=== PATIENT | female | born 1955 | race Caucasian/White ===

== ENCOUNTER 2017-04-16 12:16 | Emergency (ER) | payer SELFPAY ==
[~2017-04-16] VITALS: Ht 149.9 cm; Wt 60.2 kg
[~2017-04-16 12:16] MED LIST: ALPR.5 PO; PROT40TA PO; TRAM-492 PO; TRAZ100T5; ZOLO100T PO
[2017-04-16 12:20] VITALS: BP 134/76; PULSE 78; RESP 16; TEMP 98.1; O2SAT 98
[2017-04-16] MEDS ORDERED: CYCLOBENZAPRINE HCL 10 MG TAB PO ONE (12:30)
[2017-04-16] MEDS ORDERED: KETOROLAC TROMETHAMINE 60 MG/2 ML (IM) VIAL IM ONE (12:30)
--- NOTE | 2017-04-16 12:44 | PD ---
HPI Chief Complaint: Musculoskeletal Complaint Time Seen by Provider: 12:31 Travel History International Travel<30 days: No Contact w/Intl Traveler<30days: No Traveled to known affect area: No History of Present Illness HPI 62-year-old female presents to the emergency room for evaluation of bilateral low back pain with radiation down the left lower extremity for the past week. Patient denies trauma or injury. States it started after she [place] the [place]. Pain has worsened. She has been taking Aleve without significant relief in symptoms. Pain is worsened with ambulation and when she applies pressure to the left lower extremity. She denies fever, chills, weight loss, IV drug use, upper or lower extremity paresthesias, loss of bowel or bladder control, and saddle anesthesia. She had one episode of sciatica about 4 years ago but has no other back pain history. No significant past medical history. PFSH Past Medical History Arthritis: Yes (OSTEOARTHRITIS) Asthma: No Autoimmune Disease: No Blood Disorders: No Anxiety: Yes Depression: Yes Heart Rhythm Problems: No Cancer: No Cardiovascular Problems: No High Cholesterol: Yes Chest Pain: No Congestive Heart Failure: No COPD: No Cerebrovascular Accident: No Diabetes: No Diminished Hearing: No Endocrine: No Gastrointestinal Disorders: Yes (gastritis, pancreatitis) GERD: No Genitourinary: No Headaches: No Hepatitis: No Hiatal Hernia: No Hypertension: No Immune Disorder: No Kidney Stones: No Musculoskeletal: Yes (CHRONIC BACK PAIN) Neurologic: No Psychiatric: No Reproductive: No Respiratory: No Migraines: No Myocardial Infarction: No Pancreatitis: Yes Renal Failure: No Seizures: No Sickle Cell Disease: No Sleep Apnea: No Thyroid Disease: No Triglycerides - High: Yes Ulcer: Yes ?: Not Menopausal: Yes Past Surgical History Abdominal Surgery: No AICD: No Appendectomy: No Arteriovenous Shunt: No Cardiac Surgery: No Section: Yes (x2) Cholecystectomy: No Ear Surgery: No Endocrine Surgery: No Eye Surgery: No Genitourinary Surgery: No Gynecologic Surgery: Yes (C SECTIONS) Insulin Pump: No Oral Surgery: No Pacemaker: No Thoracic Surgery: No Other Surgery: Yes (C SECTIONS) Social History Alcohol Use: No (stopped 3 weeks ago ) Tobacco Use: Yes (3 CIGS A DAY) Substance Use: No Allergies-Medications (Allergen,Severity, Reaction): Coded Allergies: Penicillin (Verified Allergy, Severe, Rash/Itching, 04/16/17) Reported Meds & Prescriptions Reported Meds & Active Scripts Active Robaxin (Methocarbamol) 750 Mg Tab 750 Mg PO Q8HR Zoloft (Sertraline HCl) 100 Mg Tab 100 Mg PO DAILY Reported Trazodone HCl 100 Mg Tab 300 Mg HS Review of Systems Except as stated in HPI: all other systems reviewed are Neg Physical Exam Narrative GENERAL: Well-nourished, well-developed female in no acute distress. Afebrile. Ambulatory. SKIN: Focused skin assessment warm/dry. No erythema or ecchymosis. HEAD: Normocephalic. EYES: No scleral icterus. No injection or drainage. NECK: Supple, trachea midline. No JVD or lymphadenopathy. CARDIOVASCULAR: Regular rate and rhythm without murmurs, gallops, or rubs. RESPIRATORY: Breath sounds equal bilaterally. No accessory muscle use. BACK: No CVA tenderness. No rash. No point tenderness on palpation of the spine. Moderate tenderness to palpation of the left buttocks. Negative straight leg raise. Strength 5/5 and equal in lower extremities. Data Data Last Documented VS Vital Signs Date Time Temp Pulse Resp B/P Pulse Ox O2 Delivery O2 Flow Rate FiO2 04/16/17 12:20 98.1 78 16 134/76 98 Orders Spine, Lumbar - Ltd (Ap & Lat) (04/16/17 ) Cyclobenzaprine (Flexeril) (04/16/17 12:30) Ketorolac Inj (Toradol Inj) (04/16/17 12:30) MDM Medical Decision Making Medical Screen Exam Complete: Yes Emergency Medical Condition: Yes Medical Record Reviewed: Yes Differential Diagnosis Acute on chronic low back pain, Sciatica, muscle spasm Narrative Course 62-year-old female presents to the emergency room for evaluation of low back pain with radiation down the left lower extremity for the past week. Patient denies trauma or injury. She is ambulatory. No red flag symptoms. Left lower extremity is neurovascularly intact. X-ray shows degenerative spondylosis. This is sciatica. Patient will be given Flexeril and Toradol in the emergency room. Discharged with prescriptions for ibuprofen and Robaxin. Told to follow up with a primary care physician or return for worsening symptoms. She understands and agrees to plan. Diagnosis Primary Impression: Left-sided low back pain with sciatica Qualified Code: M54.42 - Acute left-sided low back pain with left-sided sciatica Referrals: Primary Care Physician Patient Instructions: General Instructions, Sciatica (ED) Additional Instructions: Rest and drink plenty of fluids. Take Robaxin as directed, as needed for pain. Take ibuprofen with food as directed, as needed for pain. Apply ice to the affected area for 20 minutes at a time, as needed for pain and swelling. Follow-up with a primary care physician. Return to the emergency room for worsening symptoms. Med/Other Pt SpecificInfo: Prescription(s) given Scripts Methocarbamol (Robaxin)750 Mg [id number] Mg PO Q8HR #15 TAB Ref 0 Prov:Toby Boston MD 04/16/17 Disposition: 01 DISCHARGE HOME Condition: Stable Elvira Aguero Apr 16, 2017 12:43
[2017-04-16] MEDS ORDERED: ROBA750T PO (13:16)
--- NOTE | 2017-04-16 14:09 | RADHPO ---
EXAM DATE/TIME: 04/16/2017 12:51 [facility] COMPARISON: No previous studies available for comparison. INDICATIONS : Lower back pain for 1 week. No known injury. MEDICAL HISTORY : None. SURGICAL HISTORY : None. ENCOUNTER: Initial ACUITY: 1 week PAIN SCORE: 8/10 LOCATION: Lumbar spine FINDINGS: Two view examination was performed. There are five non-rib bearing vertebral bodies. The vertebral bodies are in normal alignment without evidence of subluxation or scoliosis. Mild joint space narrowi ng and in the lower lumbar spine with minimal lateral osteophytes. The pedicles are intact. Bony mi neralization is normal. No fracture is identified. Mild aortic calcifications. CONCLUSION: 1. Mild degenerative spondylosis of the lower lumbar spine. Azar Hull MD on April 16, 2017 at 13:57 Board Certified Radiologist. This report was verified electronically.
[2017-04-17] MEDS ORDERED: TRAZ1TAB45 PO (13:47)
[2017-04-19] MEDS ORDERED: TRAZ1TAB45 PO (13:28)
== END 2017-04-16 14:36 | disposition home or self-care (01) ==
LOC: PHEFT 12:16
DX: M54.42 Lumbago with sciatica, left side (principal); E78.00 Pure hypercholesterolemia, unspecified; F17.210 Nicotine dependence, cigarettes, uncomplicated
CPT/HCPCS: 72100; 96372; 99284; J1885

== ENCOUNTER 2017-08-31 07:39 | Emergency (ER) | payer SELFPAY ==
[~2017-08-31] VITALS: Ht 149.9 cm; Wt 50.5 kg
[~2017-08-31 07:39] MED LIST changes: -ALPR.5 PO; -PROT40TA PO; +ROBA750T PO; -TRAM-492 PO; +TRAM50TA PO; -TRAZ100T5; +TRAZ1TAB45 PO
[2017-08-31 07:43] VITALS: BP 140/65; PULSE 92; RESP 16; TEMP 98.2; O2SAT 95
--- NOTE | 2017-08-31 08:13 | PD ---
HPI Chief Complaint: Fall Time Seen by Provider: 08:03 Travel History International Travel<30 days: No Contact w/Intl Traveler<30days: No Traveled to known affect area: No History of Present Illness HPI 62-year-old female states she tripped and fell on the ground last night and hit the left side of her head and left lower ribs. She did not lose consciousness. She is not on any blood thinner medications. She denies any other concurrent complaints. Quality pain is sharp. Severity is severe per patient. Pain is worse with movement. Fall was from standing. PFSH Past Medical History Arthritis: Yes (OA) Asthma: No Autoimmune Disease: No Blood Disorders: No Anxiety: Yes Depression: Yes Heart Rhythm Problems: No Cancer: No Cardiovascular Problems: No High Cholesterol: Yes Chest Pain: No Congestive Heart Failure: No COPD: No Cerebrovascular Accident: No Diabetes: No Diminished Hearing: No Endocrine: No Gastrointestinal Disorders: Yes (Gastritis, pancreatitis) GERD: No Genitourinary: No Headaches: No Hepatitis: No Hiatal Hernia: No Hypertension: No Immune Disorder: No Kidney Stones: No Musculoskeletal: Yes (Chronic back pain, sciatica ) Neurologic: No Psychiatric: No Reproductive: No Respiratory: No Migraines: No Myocardial Infarction: No Pancreatitis: Yes Renal Failure: No Seizures: No Sickle Cell Disease: No Sleep Apnea: No Thyroid Disease: No Triglycerides - High: Yes Ulcer: Yes ?: Not Menopausal: Yes Past Surgical History Abdominal Surgery: No AICD: No Appendectomy: No Arteriovenous Shunt: No Cardiac Surgery: No Section: Yes (X's 2) Cholecystectomy: No Ear Surgery: No Endocrine Surgery: No Eye Surgery: No Genitourinary Surgery: No Gynecologic Surgery: Yes (C SECTIONS) Insulin Pump: No Oral Surgery: No Pacemaker: No Thoracic Surgery: No Other Surgery: Yes (C SECTIONS) Social History Alcohol Use: No (Occ.) Tobacco Use: Yes (1-2 cigarettes/day) Substance Use: No Allergies-Medications (Allergen,Severity, Reaction): Coded Allergies: penicillin G (Unverified Allergy, Severe, Rash/Itching, 08/31/17) Reported Meds & Prescriptions Reported Meds & Active Scripts Active Percocet (Oxycodone-Acetaminophen) 5-325 mg Tab 1 Tab PO Q6H PRN Tramadol (Tramadol HCl) 50 Mg Tab 50 Mg PO TID PRN Trazodone (Trazodone HCl) 150 Mg Tablet 2 Tab PO HS Zoloft (Sertraline HCl) 100 Mg Tab 100 Mg PO DAILY Review of Systems Except as stated in HPI: all other systems reviewed are Neg Physical Exam Narrative General: 62 y/o patient who appears uncomfortable when she takes a deep breath on her left lower rib area Skin: trauma noted to left forehead with small hematoma and abrasion Eyes: Pupils equal, eomi ENT: no septal hematoma NECK: no pain with palpation and range of motion, nexus criteria negative Cardiovascular: Regular rate and rhythm Respiratory: Normal respiratory effort noted, clear to auscultation bilaterally Abdomen: soft, nontender, nondistended Back: No step-offs, midline spine nontender with palpation Extremities: No pain over main joints Neuro: awake, alert, sensation and motor grossly intact Chest wall: Tender to left lower lateral rib area under left breast Data Data Last Documented VS Vital Signs Date Time Temp Pulse Resp B/P (MAP) Pulse Ox O2 Delivery O2 Flow Rate FiO2 08/31/17 07:43 98.2 92 16 140/65 (90) 95 Room Air Orders Orders Ct Brain W/O Iv Contrast(Rout) (08/31/17 08:03) Chest, Pa & Lat (08/31/17 ) Ketorolac Inj (Toradol Inj) (08/31/17 08:15) Ed Discharge Order (08/31/17 08:59) [facility] Medical Decision Making Medical Screen Exam Complete: Yes Emergency Medical Condition: Yes Medical Record Reviewed: Yes (past history confirmed) Interpretation(s) Last 24 hours Impressions Chest X-Ray 08/31/17 0000 Signed Impressions: Service Date/Time: Thursday, August 31, 2017 08:14 - CONCLUSION: Normal examination. Carlos Coyne MD ct brain no acute Differential Diagnosis Fracture, pneumothorax, intracranial hemorrhage, musculoskeletal strain Narrative Course Will check chest x-ray and CT head. Patient drove herself here will dose with Toradol and reevaluate as patient's states Tylenol is not strong enough ed workup no acute findings on imaging, Patient denies any new complaints and states that they are feeling better. Patient happy with care, all questions answered. Patient knows that follow up is incumbent on them and to return to the emergency room immediately if new or worsening symptoms develop. Patient given strict return precautions, vitals reviewed and are normal, agrees to further workup as an outpatient. Diagnosis Primary Impression: Rib pain on left side Additional Impression: Traumatic hematoma of forehead Qualified Codes: S00.83XA - Contusion of other part of head, initial encounter Patient Instructions: General Instructions Additional Instructions: return as needed, percocet as needed for severe pain, follow with primary this week Med/Other Pt SpecificInfo: Prescription(s) given Scripts Oxycodone-Acetaminophen (Percocet) 5-325 mg Tab 1 TAB PO Q6H Y for PAIN, #10 TAB 0 Refills Prov: Shanti Hernández MD 08/31/17 Disposition: 01 DISCHARGE HOME Condition: Stable Shanti Hernández MD Aug 31, 2017 08:12
[2017-08-31] MEDS ORDERED: KETOROLAC TROMETHAMINE 60 MG/2 ML (IM) VIAL IM ONE (08:15)
--- NOTE | 2017-08-31 08:37 | RADRPT ---
EXAM DATE/TIME: 08/31/2017 08:14 [facility] COMPARISON: No previous studies available for comparison. INDICATIONS : Left sided chest pain post fall yesterday MEDICAL HISTORY : None. SURGICAL HISTORY : None. ENCOUNTER: Initial ACUITY: 1 day PAIN SCORE: 10/10 LOCATION: Left chest FINDINGS: PA and lateral views of the chest demonstrate the lungs to be symmetrically aerated without evidence of mass, infiltrate or effusion. The cardiomediastinal contours are unremarkable. Osseous structure s are intact. CONCLUSION: Normal examination. Carlos Coyne MD on August 31, 2017 at 8:34 Board Certified Radiologist. This report was verified electronically.
--- NOTE | 2017-08-31 08:45 | RADRPT ---
EXAM DATE/TIME: 08/31/2017 08:29 [facility] COMPARISON: No previous studies available for comparison. INDICATIONS : Fall hitting head. RADIATION DOSE: 60.14 CTDIvol (mGy) MEDICAL HISTORY : Hypercholesterolemia. Pancreatitis. Hyperlipedema, Sciatica SURGICAL HISTORY : Knee ENCOUNTER: Initial ACUITY: 1 day PAIN SCALE: 8/10 LOCATION: Left cranial near forehead. TECHNIQUE: Multiple contiguous axial images were obtained of the head. Using automated exposure control and adj ustment of the mA and/or kV according to patient size, radiation dose was kept as low as reasonably a chievable to obtain optimal diagnostic quality images. DICOM format image data is available electro nically for review and comparison. FINDINGS: CEREBRUM: The ventricles are normal for age. No evidence of midline shift, mass lesion, hemorrhage or acute in farction. No extra-axial fluid collections are seen. POSTERIOR FOSSA: The cerebellum and brainstem are intact. The 4th ventricle is midline. The cerebellopontine angle i s unremarkable. EXTRACRANIAL: The visualized portion of the orbits is intact. There is a small focal increased density seen in the left lateral frontal scalp likely from focal injury or pre-existing skin lesion. SKULL: The calvaria is intact. No evidence of skull fracture. CONCLUSION: No intracranial abnormality seen. Carlos Coyne MD on August 31, 2017 at 8:41 Board Certified Radiologist. This report was verified electronically.
[2017-08-31] MEDS ORDERED: PERC5TAB12 PO (08:52)
[2017-09-12] MEDS ORDERED: TRAZ1TAB45 PO (15:36)
[2017-09-12] MEDS ORDERED: TRAM50TA PO (15:38)
== END 2017-08-31 09:11 | disposition home or self-care (01) ==
LOC: PHED 07:39
DX: R07.81 Pleurodynia (principal); S00.83XA Contusion of other part of head, initial encounter; E78.5 Hyperlipidemia, unspecified; Z72.0 Tobacco use; Z87.39 Personal history of other diseases of the musculoskeletal system and connective tissue; Z86.59 Personal history of other mental and behavioral disorders; Z87.19 Personal history of other diseases of the digestive system; W01.0XXA Fall on same level from slipping, tripping and stumbling without subsequent striking against object, initial encounter
CPT/HCPCS: 70450; 71020; 96372; 99285; J1885

== ENCOUNTER 2017-09-04 12:16 | Emergency (ER) | payer SELFPAY ==
[~2017-09-04] VITALS: Ht 149.9 cm; Wt 51.0 kg
[~2017-09-04 12:16] MED LIST changes: +PERC5TAB12 PO; -ROBA750T PO
[2017-09-04 12:21] VITALS: BP 137/69; PULSE 73; RESP 18; TEMP 99.2; O2SAT 97
--- NOTE | 2017-09-04 13:36 | PD ---
HPI Chief Complaint: Respiratory Symptoms Time Seen by Provider: 13:26 Travel History International Travel<30 days: No Contact w/Intl Traveler<30days: No Traveled to known affect area: No History of Present Illness HPI 62-year-old female complains of left-sided chest wall pain. Patient fell 4 days ago and was seen in emergency room. Patient had CT scan the brain and chest x-ray done which shows no acute pathology. Patient was diagnosed with possible refracture and given prescription for Percocet. Patient states that she has persistent left sided chest wall pain. The pain is sharp pain localized to left chest. Patient denies any pain radiation. Patient states that the pain is worse with deep breathing and movement. PFSH Past Medical History Arthritis: Yes (OA) Asthma: No Autoimmune Disease: No Blood Disorders: No Anxiety: Yes Depression: Yes Heart Rhythm Problems: No Cancer: No Cardiovascular Problems: No High Cholesterol: Yes Chest Pain: No Congestive Heart Failure: No COPD: No Cerebrovascular Accident: No Diabetes: No Diminished Hearing: No Endocrine: No Gastrointestinal Disorders: Yes (Gastritis, pancreatitis) GERD: No Genitourinary: No Headaches: No Hepatitis: No Hiatal Hernia: No Heparin Induced Thrombocytopen: No Hypertension: No Immune Disorder: No Implanted Vascular Access Dvce: No Kidney Stones: No Musculoskeletal: Yes (Chronic back pain, sciatica ) Neurologic: No Psychiatric: No Reproductive: No Respiratory: No Migraines: No Myocardial Infarction: No Pancreatitis: Yes Renal Failure: No Seizures: No Sickle Cell Disease: No Sleep Apnea: No Thyroid Disease: No Triglycerides - High: Yes Ulcer: Yes ?: Not Menopausal: Yes Past Surgical History Abdominal Surgery: No AICD: No Appendectomy: No Arteriovenous Shunt: No Cardiac Surgery: No Section: Yes (X's 2) Cholecystectomy: No Ear Surgery: No Endocrine Surgery: No Eye Surgery: No Genitourinary Surgery: No Gynecologic Surgery: Yes (C SECTIONS) Insulin Pump: No Neurologic Surgery: No Oral Surgery: No Pacemaker: No Thoracic Surgery: No Other Surgery: Yes (C SECTIONS) Social History Alcohol Use: No (Occ.) Tobacco Use: Yes (1-2 cigarettes/day) Substance Use: No Allergies-Medications (Allergen,Severity, Reaction): Coded Allergies: penicillin G (Unverified Allergy, Severe, Rash/Itching, 09/04/17) Reported Meds & Prescriptions Reported Meds & Active Scripts Active Percocet (Oxycodone-Acetaminophen) 5-325 mg Tab 1 Tab PO Q6H PRN Tramadol (Tramadol HCl) 50 Mg Tab 50 Mg PO TID PRN Trazodone (Trazodone HCl) 150 Mg Tablet 2 Tab PO HS Zoloft (Sertraline HCl) 100 Mg Tab 100 Mg PO DAILY Review of Systems General / Constitutional: No: Fever Eyes: No: Visual changes HENT: No: Headaches Cardiovascular: No: Chest Pain or Discomfort Respiratory: No: Shortness of Breath Gastrointestinal: No: Abdominal Pain Genitourinary: No: Dysuria Musculoskeletal: Positive: Pain Skin: No Rash Neurologic: No: Weakness Psychiatric: No: Depression Endocrine: No: Polydipsia Hematologic/Lymphatic: No: Easy Bruising Physical Exam Narrative GENERAL: Well-nourished, well-developed patient. SKIN: Focused skin assessment warm/dry. HEAD: Normocephalic. EYES: No scleral icterus. No injection or drainage. NECK: Supple, trachea midline. No JVD or lymphadenopathy. CARDIOVASCULAR: Regular rate and rhythm without murmurs, gallops, or rubs. RESPIRATORY: Breath sounds equal bilaterally. No accessory muscle use. GASTROINTESTINAL: Abdomen soft, non-tender, nondistended. MUSCULOSKELETAL: No cyanosis, or edema. BACK: Nontender without obvious deformity. No CVA tenderness. Moderate tenderness on palpation left chest wall but axillary line. No crepitus or deformity noted. Breath sounds equal bilaterally. Data Data Last Documented VS Vital Signs Date Time Temp Pulse Resp B/P (MAP) Pulse Ox O2 Delivery O2 Flow Rate FiO2 09/04/17 12:21 99.2 73 18 137/69 (91) 97 Orders Orders Ribs, Uni (W/Exp Cxr-Min 3vw) (09/04/17 13:32) [facility] Medical Decision Making Medical Screen Exam Complete: Yes Emergency Medical Condition: Yes Interpretation(s) X-ray left RIBS shows no acute process. Differential Diagnosis Differential diagnosis including contusion, rib fracture, hemopneumothorax. Narrative Course 62-year-old female with persistent left-sided chest wall pain. Status post fall. Diagnosis Primary Impression: Chest wall contusion Qualified Codes: S20.212D - Contusion of left front wall of thorax, subsequent encounter Patient Instructions: General Instructions Additional Instructions: Take medication as needed for pain. Follow-up with personal physician. Return if worse. Med/Other Pt SpecificInfo: Prescription(s) given Scripts Methocarbamol (Robaxin) 750 Mg Tab 750 MG PO QID for Muscle Spasm, #20 TAB 0 Refills Prov: Aureliano Arellano MD 09/04/17 Meloxicam (Mobic) 15 Mg Tab 15 MG PO DAILY for Pain, #30 TAB 0 Refills Prov: Aureliano Arellano MD 09/04/17 Disposition: 01 DISCHARGE HOME Condition: Stable Aureliano Arellano MD Sep 04, 2017 13:35
--- NOTE | 2017-09-04 14:46 | RADRPT ---
EXAM DATE/TIME: 09/04/2017 13:44 [facility] COMPARISON: No previous studies available for comparison. INDICATIONS : Worsening left chest pain post fall 4 days ago. Painful respiratons. Re-check. MEDICAL HISTORY : Hypercholesterolemia. Pancreatitis. Osteoarthritis. Gastritis. Ulcer. Sciatica. Smoker. SURGICAL HISTORY : section. Mastectomy. Right knee. Colectomy. ENCOUNTER: [facility] ACUITY: 4 - 6 days PAIN SCORE: 9/10 LOCATION: Left chest /ribs FINDINGS: Multiple views of the left ribs were performed. There is no evidence of displaced fracture. No dest ructive lesions or areas of periosteal thickening are seen. Expiratory view of the chest is negative for pneumothorax. The mediastinal structures are midline. CONCLUSION: The lungs are clear. Kale Kaplan MD on September 04, 2017 at 14:44 Board Certified Radiologist. This report was verified electronically.
[2017-09-04] MEDS ORDERED: ROBA750T PO (14:53)
[2017-09-04] MEDS ORDERED: MOBI15TA PO (14:53)
[2017-09-12] MEDS ORDERED: TRAZ1TAB45 PO (15:36)
[2017-09-12] MEDS ORDERED: TRAM50TA PO (15:38)
[2017-09-16] MEDS ORDERED: CALCTAB19 PO (09:01)
[2017-09-16] MEDS ORDERED: HYDR-3583 PO (09:01)
[2017-09-16] MEDS ORDERED: ERGO1CAP30 PO (09:01)
[2017-09-17] MEDS ORDERED: SENN1TAB PO (11:52)
== END 2017-09-04 15:33 | disposition home or self-care (01) ==
LOC: PHED 12:16
DX: S20.212D Contusion of left front wall of thorax, subsequent encounter (principal); Z72.0 Tobacco use; X58.XXXD Exposure to other specified factors, subsequent encounter
CPT/HCPCS: 71101; 99284

== ENCOUNTER 2017-09-14 06:50 | Inpatient (IN) | payer SELFPAY ==
[2017-09-14] VITALS (11 sets, daily range): BP systolic 86–148; BP diastolic 46–71; PULSE 67–82; RESP 18–22; TEMP 97–98.2; O2SAT 92–97
[~2017-09-14] VITALS: Ht 149.9 cm; Wt 55.3 kg
[~2017-09-14 06:50] MED LIST changes: +MOBI15TA PO; +ROBA750T PO
[2017-09-14] MEDS ORDERED: KETOROLAC TROMETHAMINE 30 MG/ML (IVP) VIAL IV PUSH ONE ×2 (07:00)
--- NOTE | 2017-09-14 07:09 | PD ---
HPI Chief Complaint: Fall Time Seen by Provider: 06:58 Travel History International Travel<30 days: No Contact w/Intl Traveler<30days: No History of Present Illness HPI 62 yo f c/o L arm pain. she slipped on the wet ground 9 hours prior leading to injury. constant moderate to severe pain reported. it's worse with passive/ active rom. no additional injury to report. onset sudden. mechanical fall. PFSH Past Medical History Arthritis: Yes (OA) Asthma: No Autoimmune Disease: No Blood Disorders: No Anxiety: Yes Depression: Yes Heart Rhythm Problems: No Cancer: No Cardiovascular Problems: No High Cholesterol: Yes Chest Pain: No Congestive Heart Failure: No COPD: No Cerebrovascular Accident: No Diabetes: No Diminished Hearing: No Endocrine: No Gastrointestinal Disorders: Yes (Gastritis, pancreatitis) GERD: No Genitourinary: No Headaches: No Hepatitis: No Hiatal Hernia: No Heparin Induced Thrombocytopen: No Hypertension: No Immune Disorder: No Implanted Vascular Access Dvce: No Kidney Stones: No Musculoskeletal: Yes (Chronic back pain, sciatica ) Neurologic: No Psychiatric: No Reproductive: No Respiratory: No Migraines: No Myocardial Infarction: No Pancreatitis: Yes Renal Failure: No Seizures: No Sickle Cell Disease: No Sleep Apnea: No Thyroid Disease: No Triglycerides - High: Yes Ulcer: Yes Menopausal: Yes Past Surgical History Abdominal Surgery: No AICD: No Appendectomy: No Arteriovenous Shunt: No Cardiac Surgery: No Section: Yes (X's 2) Cholecystectomy: No Ear Surgery: No Endocrine Surgery: No Eye Surgery: No Genitourinary Surgery: No Gynecologic Surgery: Yes (C SECTIONS) Insulin Pump: No Neurologic Surgery: No Oral Surgery: No Pacemaker: No Thoracic Surgery: No Other Surgery: Yes (C SECTIONS) Social History Alcohol Use: No (Occ.) Tobacco Use: Yes (1-2 cigarettes/day) Substance Use: No Allergies-Medications (Allergen,Severity, Reaction): Coded Allergies: penicillin G (Unverified Allergy, Severe, Rash/Itching, 09/04/17) Reported Meds & Prescriptions Reported Meds & Active Scripts Active Trazodone (Trazodone HCl) 150 Mg Tablet 2 Tab PO HS Zoloft (Sertraline HCl) 100 Mg Tab 100 Mg PO DAILY Review of Systems General / Constitutional: No: Fever, Chills Neurologic: No: Weakness, Syncope Physical Exam Narrative GENERAL: 62 yo F, WNWD, moderate distress 2/2 pain SKIN: Warm and dry. HEAD: Atraumatic. Normocephalic. EYES: Pupils equal and round. No scleral icterus. No injection or drainage. ENT: No nasal bleeding or discharge. Mucous membranes pink and moist. NECK: Trachea midline. No JVD. CARDIOVASCULAR: Regular rate and rhythm. RESPIRATORY: No accessory muscle use. Clear to auscultation. Breath sounds equal bilaterally. GASTROINTESTINAL: Abdomen soft, non-tender, nondistended. Hepatic and splenic margins not palpable. MUSCULOSKELETAL: TTP throughout LUE. 2+ radial artery pulse. ROM of fingers intact bilaterally. no gross deformity. NEUROLOGICAL: Awake and alert. No obvious cranial nerve deficits. Motor grossly within normal limits. Five out of 5 muscle strength in the arms and legs. Normal speech. PSYCHIATRIC: Appropriate mood and affect; insight and judgment normal. Data Data Last Documented VS Vital Signs Date Time Temp Pulse Resp B/P (MAP) Pulse Ox O2 Delivery O2 Flow Rate FiO2 09/14/17 10:29 72 20 128/68 (88) 97 Room Air 09/14/17 08:35 2.00 09/14/17 07:00 98.2 Orders Orders Ketorolac Inj (Toradol Inj) (09/14/17 07:00) Humerus (Min 2vws) (09/14/17 06:58) Ice/Cold Pack (09/14/17 06:58) Splint Or Brace Apply/Monitor (09/14/17 06:58) Shoulder, Limited(2vws) (09/14/17 06:58) Basic Metabolic Panel (Bmp) (09/14/17 07:40) Complete Blood Count With Diff (09/14/17 07:40) Prothrombin Time / Inr (Pt) (09/14/17 07:40) Act Partial Throm Time (Ptt) (09/14/17 07:40) Iv Access Insert/Monitor (09/14/17 07:40) Ecg Monitoring (09/14/17 07:40) Oximetry (09/14/17 07:40) Hydromorphone Pf Inj (Dilaudid Pf Inj) (09/14/17 07:45) Ondansetron Inj (Zofran Inj) (09/14/17 07:45) Sodium Chlor 0.9% 1000 Ml Inj (Ns 1000 M (09/14/17 07:40) Sodium Chloride 0.9% Flush (Ns Flush) (09/14/17 07:45) Propofol 200 Mg/20 Ml Inj (Diprivan 200 (09/14/17 07:45) Sling Cradle Arm (09/14/17 ) Shoulder, Limited(2vws) (09/14/17 ) Humerus (Min 2vws) (09/14/17 ) Chest, Single Ap (09/14/17 08:50) Alcohol (Ethanol) (09/14/17 09:15) Sodium Chlor 0.9% 1000 Ml Inj (Ns 1000 M (09/14/17 09:30) Ct Shoulder W/O Contrast (09/14/17 ) Admit Order (Ed Use Only) (09/14/17 ) Vital Signs (Adult) Q4H (09/14/17 10:31) Diet Npo (09/14/17 Lunch) Activity Bed Rest (09/14/17 10:31) Notify Dr: Other (09/14/17 10:31) Labs Laboratory Tests Test 09/14/17 08:00 White Blood Count 7.3 TH/MM3 Red Blood Count 4.07 MIL/MM3 Hemoglobin 14.3 GM/DL Hematocrit 41.5 % Mean Corpuscular Volume 102.0 FL Mean Corpuscular Hemoglobin 35.2 PG Mean Corpuscular Hemoglobin Concent 34.5 % Red Cell Distribution Width 12.6 % Platelet Count 261 TH/MM3 Mean Platelet Volume 7.7 FL Neutrophils (%) (Auto) 74.1 % Lymphocytes (%) (Auto) 22.1 % Monocytes (%) (Auto) 2.9 % Eosinophils (%) (Auto) 0.2 % Basophils (%) (Auto) 0.7 % Neutrophils # (Auto) 5.3 TH/MM3 Lymphocytes # (Auto) 1.6 TH/MM3 Monocytes # (Auto) 0.2 TH/MM3 Eosinophils # (Auto) 0.0 TH/MM3 Basophils # (Auto) 0.1 TH/MM3 CBC Comment DIFF FINAL Differential Comment Prothrombin Time 11.7 SEC Prothromb Time International Ratio 1.1 RATIO Activated Partial Thromboplast Time 23.2 SEC Blood Urea Nitrogen 5 MG/DL Creatinine 0.49 MG/DL Random Glucose 117 MG/DL Calcium Level 8.1 MG/DL Sodium Level 143 MEQ/L Potassium Level 3.0 MEQ/L Chloride Level 106 MEQ/L Carbon Dioxide Level 21.5 MEQ/L Anion Gap 16 MEQ/L Estimat Glomerular Filtration Rate 127 ML/MIN Ethyl Alcohol Level 192 MG/DL MDM Medical Decision Making Medical Screen Exam Complete: Yes Emergency Medical Condition: Yes Medical Record Reviewed: Yes Differential Diagnosis fracture, contusion, sprain, opioid misuse/addiction Narrative Course Procedural sedation with attempted reduction complicated by morphology of fracture. No resultant improvement after attempt. 2+ radial artery before and after wrist extension intact before and after Pain controlled with toradol and dilaudid 0.75mg. CBC & BMP Diagram 09/14/17 08:00 Calcium Level 8.1 L EtOH 192 Last 24 hours Impressions Chest X-Ray 09/14/17 0850 Signed Impressions: Service Date/Time: Thursday, September 14, 2017 08:59 - CONCLUSION: 1. No acute cardiopulmonary disease. 2. Comminuted left humeral neck fracture. Azar Hull MD Shoulder X-Ray 09/14/17 0658 Signed Impressions: Service Date/Time: Thursday, September 14, 2017 07:13 - CONCLUSION: 1. Comminuted left humeral neck fracture, as above. Azar Hull MD Humerus X-Ray 09/14/17 0658 Signed Impressions: Service Date/Time: Thursday, September 14, 2017 07:23 - CONCLUSION: 1. Comminuted left humeral neck fracture, as above. Azar Hull MD Shoulder X-Ray 09/14/17 0000 Signed Impressions: Service Date/Time: Thursday, September 14, 2017 08:54 - CONCLUSION: 1. Comminuted humeral neck fracture, as above. Azar Hull MD Humerus X-Ray 09/14/17 0000 Signed Impressions: Service Date/Time: Thursday, September 14, 2017 08:57 - CONCLUSION: 1. Comminuted humeral neck fracture, as above. Azar Hull MD d/w Dr Dale pt to go to [facility] for ORIF ct shoulder added d/w Dr Serrano Procedures Procedure Narrative After the risks and benefits were discussed the following procedure was performed: MODERATE SEDATION: The patient was placed on a monitoring and evaluation advisor and pulse oximetry. An ambu bag and suction was immediately available at bedside. The patient was monitored by the nurse. Oxygen saturation , heart rate and blood pressure were monitored. Procedural sedation was acheived using propofol. The patient was observed until awake and alert. Procedural Sedation time in attendance was 15 minutes. DISLOCATION/FRACTURE: 2/2 morphology attempted reduction was unsuccessful. 2+ radial artery pulse bilaterally. wrist extension normal. Diagnosis Primary Impression: Fracture dislocation of left shoulder joint Qualified Codes: S42.92XA - Fracture of left shoulder girdle, part unspecified , initial encounter for closed fracture Admitting Information Admitting Physician Requests: Keith Winkler MD Sep 14, 2017 07:09
[2017-09-14] MEDS ORDERED: SODIUM CHLOR 0.9% 1000 ML INJ 1,000 ML IV SCH ×2 (07:40)
--- NOTE | 2017-09-14 07:41 | RADRPT ---
EXAM DATE/TIME: 09/14/2017 07:23 [facility] COMPARISON: SHOULDER LEFT LTD (2VWS), September 14, 2017, 7:13. INDICATIONS : Fell last night on left arm and shoulder MEDICAL HISTORY : None. SURGICAL HISTORY : None. ENCOUNTER: Initial ACUITY: 1 day PAIN SCORE: 10/10 LOCATION: Left upper arm FINDINGS: Comminuted fracture of the left humeral neck with rotation and acute angulation of the humeral head a nd medial displacement of the distal fragment. Visualized portions of the left lung are clear. The re maining osseous structures are intact. Associated regional soft tissue swelling. CONCLUSION: 1. Comminuted left humeral neck fracture, as above. Azar Hull MD on September 14, 2017 at 7:36 Board Certified Radiologist. This report was verified electronically.
--- NOTE | 2017-09-14 07:42 | RADRPT ---
EXAM DATE/TIME: 09/14/2017 07:13 [facility] COMPARISON: No previous studies available for comparison. INDICATIONS : Fell last night on shoulder and arm MEDICAL HISTORY : None. SURGICAL HISTORY : None. ENCOUNTER: Initial ACUITY: 1 day PAIN SCORE: 10/10 LOCATION: Left shoulder FINDINGS: Comminuted humeral neck fracture with medial displacement of the humerus and apparent rotation and ac kelsey angulation of the humeral head. Remaining osseous structures appear intact. Regional soft tissue swelling. CONCLUSION: 1. Comminuted left humeral neck fracture, as above. Azar Hull MD on September 14, 2017 at 7:39 Board Certified Radiologist. This report was verified electronically.
[2017-09-14] MEDS ORDERED: SODIUM CHLORIDE 0.9% FLUSH 10 ML FLUSH IV FLUSH PRN ×4 (07:45→10:45)
[2017-09-14] MEDS ORDERED: HYDROmorphone HCL PF 2 MG/ML VIAL IVS ONE ×2 (07:45)
[2017-09-14] MEDS ORDERED: ONDANSETRON HCL 4 MG/2 ML VIAL IVP ONE ×2 (07:45)
[2017-09-14] MEDS ORDERED: PROPOFOL 200 MG/20 ML AMP IV ONE ×2 (07:45)
[2017-09-14 08:05] LABS: AUTOMATED NEUTROPHIL # 5.3 TH/MM3 (1.8-7.7); BASOPHIL # 0.1 TH/MM3 (0-0.2); BASOPHIL % 0.7 % (0.0-2.0); EOSINOPHIL % 0.2 % (0.0-4.0); HEMATOCRIT 41.5 % (35.0-46.0); HEMOGLOBIN 14.3 GM/DL (11.6-15.3); LYMPH % 22.1 % (9.0-44.0); LYMPHOCYTE # 1.6 TH/MM3 (1.0-4.8); MEAN CORPUSCULAR HEMOGLOBIN 35.2 PG (27.0-34.0); MEAN CORPUSCULAR HGB CONC 34.5 % (32.0-36.0); MEAN PLATELET VOLUME 7.7 FL (7.0-11.0); MONO % 2.9 % (0.0-8.0); MONOCYTE # 0.2 TH/MM3 (0-0.9); NEUT % 74.1 % (16.0-70.0); PLATELET COUNT 261 TH/MM3 (150-450); RED BLOOD COUNT 4.07 MIL/MM3 (4.00-5.30); RED CELL DISTRIBUTION WIDTH 12.6 % (11.6-17.2); WHITE BLOOD COUNT 7.3 TH/MM3 (4.0-11.0)
[2017-09-14 08:18] LABS: BICARBONATE 21.5 MEQ/L (21.0-32.0); CALCIUM 8.1 MG/DL (8.5-10.1)
[2017-09-14 08:22] LABS: CREATININE 0.49 MG/DL (0.50-1.00)
[2017-09-14 08:34] LABS: INTERNATIONAL NORMALIZED RATIO 1.1 RATIO; PROTHROMBIN TIME - PATIENT 11.7 SEC (9.8-11.6)
--- NOTE | 2017-09-14 09:21 | RADRPT ---
EXAM DATE/TIME: 09/14/2017 08:54 [facility] COMPARISON: SHOULDER LEFT LTD (2VWS), September 14, 2017, 7:13. INDICATIONS : Post reduction left shoulder MEDICAL HISTORY : None. SURGICAL HISTORY : None. ENCOUNTER: Subsequent ACUITY: 1 day PAIN SCORE: 4/10 LOCATION: Left shoulder FINDINGS: Redemonstration of comminuted humeral neck fracture with laterally displaced fracture fragments. Ther e is now increased medial displacement of the distal fragment with respect to the humeral head. Altho ugh within the glenoid fossa, humeral head appears rotated and is in sharp angulation with respect to the distal fragment. Remainder of the exam is unchanged. CONCLUSION: 1. Comminuted humeral neck fracture, as above. Azar Hull MD on September 14, 2017 at 9:16 Board Certified Radiologist. This report was verified electronically.
--- NOTE | 2017-09-14 09:23 | RADRPT ---
EXAM DATE/TIME: 09/14/2017 08:57 [facility] COMPARISON: HUMERUS LEFT (MIN 2VWS), September 14, 2017, 7:23. INDICATIONS : Left humerus trauma from fall, post reduction MEDICAL HISTORY : None. SURGICAL HISTORY : None. ENCOUNTER: Subsequent ACUITY: 1 day PAIN SCORE: 4/10 LOCATION: Left upper arm FINDINGS: Redemonstration of comminuted humeral neck fracture with now increased medial displacement of the dis blanca humeral fragment. Humeral head again appears rotated and is angulated with respect to the distal humeral fragment. Large fracture fragments are noted laterally. Remaining osseous structures appear i ntact. Remainder of the exam is unchanged. CONCLUSION: 1. Comminuted humeral neck fracture, as above. Azar Hull MD on September 14, 2017 at 9:19 Board Certified Radiologist. This report was verified electronically.
--- NOTE | 2017-09-14 09:23 | RADRPT ---
EXAM DATE/TIME: 09/14/2017 08:59 [facility] COMPARISON: No previous studies available for comparison. INDICATIONS : Fell last night on left shoulder area, has pain MEDICAL HISTORY : None. SURGICAL HISTORY : None. ENCOUNTER: Subsequent ACUITY: 1 day PAIN SCORE: 4/10 LOCATION: Left upper chest FINDINGS: A single view of the chest demonstrates the lungs to be symmetrically aerated without evidence of mas s, infiltrate or effusion. The cardiomediastinal contours are unremarkable. Comminuted left humeral neck fracture. CONCLUSION: 1. No acute cardiopulmonary disease. 2. Comminuted left humeral neck fracture. Azar Hull MD on September 14, 2017 at 9:21 Board Certified Radiologist. This report was verified electronically.
[2017-09-14] MEDS ORDERED: SODIUM CHLOR 0.9% 1000 ML INJ 1,000 ML IV ONE ×2 (09:30)
[2017-09-14] MEDS ORDERED: NALOXONE HCL 0.4 MG/ML AMP IV PUSH PRN ×2 (10:45)
[2017-09-14] MEDS ORDERED: ONDANSETRON HCL 4 MG/2 ML VIAL IVP PRN ×2 (10:45)
[2017-09-14] MEDS ORDERED: HYDROmorphone HCL PF 1 MG/ML VIAL IV PUSH PRN ×2 (10:45)
[2017-09-14] MEDS ORDERED: MAGNESIUM HYDROXIDE SUSP 30 ML CUP PO PRN ×2 (10:45)
[2017-09-14] MEDS ORDERED: HYDROmorphone HCL PF 0.5 MG/0.5 ML SYRINGE IV PUSH ONE ×2 (10:45)
[2017-09-14] MEDS: SODIUM CHLOR 0.9% 1000 ML INJ 1,000 ML IV SCH ×4 (10:52→21:36)
--- NOTE | 2017-09-14 11:03 | RADRPT ---
EXAM DATE/TIME: 09/14/2017 10:19 [facility] COMPARISON: No previous studies available for comparison. INDICATIONS : Fall injury to shoulder. RADIATION DOSE: 19.68 CTDIvol (mGy) MEDICAL HISTORY : Hypercholesterolemia. Pancreatitis. Hyperlipedema. SURGICAL HISTORY : Mastectomy. ENCOUNTER: Initial ACUITY: 1 day PAIN SCALE: 10/10 LOCATION: Left shoulder. TECHNIQUE: Volumetric scanning of the shoulder was performed. Using automated exposure control and adjustment o f the mA and/or kV according to patient size, radiation dose was kept as low as reasonably achievable to obtain optimal diagnostic quality images. DICOM format image data is available electronically f or review and comparison. FINDINGS: BONES: Comminuted fracture of the left humeral neck with laterally and posteriorly displaced greater tubercl e fragment. There is also an inferiorly displaced fragment. Distal humeral fragment is displaced medi ally. There is some inferomedial humeral head rotation. JOINTS: Glenohumeral and coracoclavicular joint spaces are maintained. SOFT TISSUES: Significant soft tissue edema primarily involving the anterior shoulder region. The integrity of the rotator cuff tendons cannot be reliably evaluated on CT without intra-articular contrast. No eviden ce of mass, organized fluid collection, or foreign body. CONCLUSION: 1. Comminuted left humeral neck fracture, as above. Azar Hull MD on September 14, 2017 at 10:53 Board Certified Radiologist. This report was verified electronically.
[2017-09-14] MEDS: HYDROmorphone HCL PF 1 MG/ML VIAL IV PUSH PRN ×8 (13:14→22:57)
--- NOTE | 2017-09-14 14:22 | HHI.HP ---
[facility] Service [facility] Primary Care Physician Royal Lawrence MD Admission Diagnosis L Humerus Fracture w/ Dislocation of Humeral Head Diagnoses: (1) Contusion of left arm Diagnosis: Principal (2) Fall Diagnosis: Principal (3) Fracture dislocation of left shoulder joint Diagnosis: Principal Travel History International Travel<30 Days: No Contact w/Intl Traveler <30 Da: No Traveled to Known Affected Are: No History of Present Illness Mrs. Vann is a 62-year-old female. Last night she had a fall and has fractured her left humerus. Humerus fractures complicated by dislocation. Alcohol was involved. The patient is questioned in regards to her alcohol intake. She says she drinks intermittently and denies drinking on a daily basis. Her only previous surgeries are C-sections. No other complaints. She denies any syncope or dizziness. No chest pain. No shortness of breath. Review of Systems Constitutional: DENIES: Fatigue, Fever, Chills, Night Sweats Eyes: DENIES: Blurred vision, Diplopia, Eye inflammation Ears, nose, mouth, throat: DENIES: Tinnitus, Hearing loss, Vertigo Respiratory: DENIES: Apneas, Wheezing, Shortness of breath Cardiovascular: DENIES: Chest pain, Palpitations, Syncope Gastrointestinal: DENIES: Abdominal pain, Black stools, Bloody stools Musculoskeletal: COMPLAINS OF: Joint pain, Joint Swelling, DENIES: Muscle aches , Stiffness Integumentary: DENIES: Abnormal pigmentation, Pruritus, Rash, Nail changes Hematologic/lymphatic: DENIES: Bruising, Lymphadenopathy Immunologic/allergic: DENIES: Eczema, Urticaria Neurologic: DENIES: Abnormal gait, Headache, Paresthesias Psychiatric: DENIES: Anxiety, Confusion, Hallucinations Past Family Social History Past Medical History Osteoarthritis Anxiety Depression Hyperlipidemia History of pancreatitis History of gastritis History of ulcer Back pain running Past Surgical History history Reported Medications Reported Meds & Active Scripts Active Trazodone (Trazodone HCl) 150 Mg Tablet 2 Tab PO HS Zoloft (Sertraline HCl) 100 Mg Tab 100 Mg PO DAILY Allergies: Coded Allergies: penicillin G (Unverified Allergy, Severe, Rash/Itching, 09/04/17) Active Ordered Medications Administered Medications Medications (Trade) Dose Ordered Sig/Marlee Route PRN Reason Start Time Stop Time Status Last Admin Dose Admin Sodium Chloride 1,000 ml @ 83 mls/hr Q12H3M IV 09/14/17 10:33 09/14/17 10:52 Hydromorphone HCl (Dilaudid Pf Inj) 1 mg Q3H PRN IV PUSH Pain 6-10;if unable to take PO 09/14/17 10:45 09/14/17 13:14 Family History Patient reports intermittent alcohol use Patient reports smoking 1-2 cigarettes per day Patient denies any illicit drug abuse Social History CHF and maternal grandmother Hemorrhage test of unknown etiology in mother Physical Exam Vital Signs Vital Signs Date Time Temp Pulse Resp B/P (MAP) Pulse Ox O2 Delivery O2 Flow Rate FiO2 09/14/17 13:25 09/14/17 13:15 72 18 126/63 (84) 97 Room Air 09/14/17 11:58 70 20 113/61 (78) 96 Room Air 09/14/17 10:55 20 09/14/17 10:29 72 20 128/68 (88) 97 Room Air 09/14/17 09:25 78 18 117/62 (80) 95 Room Air 09/14/17 09:15 70 20 86/46 (59) 95 Room Air 09/14/17 08:44 20 09/14/17 08:35 97 09/14/17 08:35 97 2.00 09/14/17 08:30 18 09/14/17 08:21 68 20 111/57 (75) 93 Room Air 09/14/17 08:20 22 95 Room Air 09/14/17 07:00 98.2 82 20 141/71 (94) 96 Physical Exam GENERAL: NAD, A&Ox3 HEAD: Normocephalic. NECK: Supple, trachea midline. No lymphadenopathy. EYES: No scleral icterus. No injection or drainage. CARDIOVASCULAR: Regular rate and rhythm without murmurs, gallops, or rubs. RESPIRATORY: Breath sounds equal bilaterally. No accessory muscle use. GASTROINTESTINAL: Abdomen soft, non-tender, nondistended. MUSCULOSKELETAL: No cyanosis, or edema. Left shoulder deformity with splinting SKIN: Warm and dry. NEURO: No focal neurological deficitis. Laboratory Laboratory Tests Test 09/14/17 08:00 White Blood Count 7.3 Red Blood Count 4.07 Hemoglobin 14.3 Hematocrit 41.5 Mean Corpuscular Volume 102.0 Mean Corpuscular Hemoglobin 35.2 Mean Corpuscular Hemoglobin Concent 34.5 Red Cell Distribution Width 12.6 Platelet Count 261 Mean Platelet Volume 7.7 Neutrophils (%) (Auto) 74.1 Lymphocytes (%) (Auto) 22.1 Monocytes (%) (Auto) 2.9 Eosinophils (%) (Auto) 0.2 Basophils (%) (Auto) 0.7 Neutrophils # (Auto) 5.3 Lymphocytes # (Auto) 1.6 Monocytes # (Auto) 0.2 Eosinophils # (Auto) 0.0 Basophils # (Auto) 0.1 CBC Comment DIFF FINAL Differential Comment Prothrombin Time 11.7 Prothromb Time International Ratio 1.1 Activated Partial Thromboplast Time 23.2 Blood Urea Nitrogen 5 Creatinine 0.49 Random Glucose 117 Calcium Level 8.1 Sodium Level 143 Potassium Level 3.0 Chloride Level 106 Carbon Dioxide Level 21.5 Anion Gap 16 Estimat Glomerular Filtration Rate 127 Ethyl Alcohol Level 192 Result Diagram: 09/14/17 0800 09/14/17 0800 Imaging Last Impressions Chest X-Ray 09/14/17 0850 Signed Impressions: Service Date/Time: Thursday, September 14, 2017 08:59 - CONCLUSION: 1. No acute cardiopulmonary disease. 2. Comminuted left humeral neck fracture. Azar Hull MD Shoulder X-Ray 09/14/17 0658 Signed Impressions: Service Date/Time: Thursday, September 14, 2017 07:13 - CONCLUSION: 1. Comminuted left humeral neck fracture, as above. Azar Hull MD Humerus X-Ray 09/14/17 0658 Signed Impressions: Service Date/Time: Thursday, September 14, 2017 07:23 - CONCLUSION: 1. Comminuted left humeral neck fracture, as above. Azar Hull MD Upper Extremity CT 09/14/17 0000 Signed Impressions: Service Date/Time: Thursday, September 14, 2017 10:19 - CONCLUSION: 1. Comminuted left humeral neck fracture, as above. MD Deni Rangel VTE Risk Assessment Deni VTE Risk Assessment: No/Low Risk (score <= 1) Caprini Risk Assessment Model Point Value = 1 Point Value = 2 Point Value = 3 Point Value = 5 Age 41-60 Minor surgery BMI > 25 kg/m2 Swollen legs Varicose veins or History of unexplained or recurrent spontaneous Oral contraceptives or hormone replacement Sepsis (< 1 month) Serious lung disease, including pneumonia (< 1 month) Abnormal pulmonary function Acute myocardial infarction Congestive heart failure (< 1 month) History of inflammatory bowel disease Medical patient at bed rest Age 61-74 Arthroscopic surgery Major open surgery (> 45 min) Laparoscopic surgery (> 45 min) Malignancy Confined to bed (> 72 hours) Immobilizing plaster cast Central venous access Age >= 75 History of VTE Family history of VTE Factor V Leiden Prothrombin [id number] Lupus anticoagulant Anticardiolipin antibodies Elevated serum homocysteine Heparin-induced thrombocytopenia Other congenital or acquired thrombophilia Stroke (< 1 month) Elective arthroplasty Hip, pelvis, or leg fracture Acute spinal cord injury (< 1 month) Prophylaxis Regimen Total Risk Factor Score Risk Level Prophylaxis Regimen 0-1 Low Early ambulation 2 Moderate Order ONE of the following: *Sequential Compression Device (SCD) *Heparin 5000 units SQ BID 3-4 Higher Order ONE of the following medications: *Heparin 5000 units SQ TID *Enoxaparin/Lovenox 40 mg SQ daily (WT < 150 kg, CrCl > 30 mL/min) *Enoxaparin/Lovenox 30 mg SQ daily (WT < 150 kg, CrCl > 10-29 mL/min) *Enoxaparin/Lovenox 30 mg SQ BID (WT < 150 kg, CrCl > 30 mL/min) AND/OR *Sequential Compression Device (SCD) 5 or more Highest Order ONE of the following medications: *Heparin 5000 units SQ TID (Preferred with Epidurals) *Enoxaparin/Lovenox 40 mg SQ daily (WT < 150 kg, CrCl > 30 mL/min) *Enoxaparin/Lovenox 30 mg SQ daily (WT < 150 kg, CrCl > 10-29 mL/min) *Enoxaparin/Lovenox 30 mg SQ BID (WT < 150 kg, CrCl > 30 mL/min) AND *Sequential Compression Device (SCD) Assessment and Plan Problem List: (1) Fracture dislocation of left shoulder joint ICD Code: S42.92XA - Fracture of left shoulder girdle, part unspecified, initial encounter for closed fracture Status: Acute (2) Contusion of left arm ICD Code: S40.022A - Contusion of left upper arm, initial encounter Status: Acute (3) Fall ICD Code: W19.XXXA - Unspecified fall, initial encounter Status: Acute Assessment and Plan Assessment and plan 58 year old female admitted secondary to left shoulder fracture with dislocation Left humerus fracture Left shoulder dislocation Continue as needed pain treatments Orthopedics consulted Surgical repair plan Nothing by mouth for surgery Anxiety Depression Continue Trazodone PRN Xanax Hyperlipidemia Diet Controlled Follow as an outpatient DVT Prophylaxis SCDs Physician Certification 2 Midnight Certification Type: Admission for Inpatient Services Order for Inpatient Services The services are ordered in accordance with Medicare regulations or non- Medicare payer requirements, as applicable. In the case of services not specified as inpatient-only, they are appropriately provided as inpatient services in accordance with the 2-midnight benchmark. Estimated LOS (days): 2 days is the estimated time the patient will need to remain in the hospital, assuming treatment plan goals are met and no additional complications. Post-Hospital Plan: Home Problem Qualifiers (1) Contusion of left arm: Qualified Codes: S40.022A - Contusion of left upper arm, initial encounter (2) Fall: Qualified Codes: W19.XXXA - Unspecified fall, initial encounter (3) Fracture dislocation of left shoulder joint: Qualified Codes: S42.92XA - Fracture of left shoulder girdle, part unspecified , initial encounter for closed fracture Keith Serrano MD Sep 14, 2017 14:22
[2017-09-14] MEDS: ALPRAZolam 0.25 MG TAB PO PRN ×2 (14:58)
[2017-09-14] MEDS: DOCUSATE SODIUM 50 MG/SENNA 8.6 MG TAB PO SCH ×2 (21:35)
[2017-09-14] MEDS: traZODone HCL 100 MG TAB PO SCH ×2 (21:35)
[2017-09-14] MEDS: SODIUM CHLORIDE 0.9% FLUSH 10 ML FLUSH IV FLUSH SCH ×2 (21:36)
[2017-09-15] VITALS (7 sets, daily range): BP systolic 101–177; BP diastolic 49–79; PULSE 57–68; RESP 16–18; TEMP 97.5–98.8; O2SAT 92–97
[2017-09-15] MEDS: HYDROmorphone HCL PF 1 MG/ML VIAL IV PUSH PRN ×6 (01:32→08:11)
[2017-09-15 07:08] LABS: AUTOMATED NEUTROPHIL # 2.4 TH/MM3 (1.8-7.7); BASOPHIL % 0.6 % (0.0-2.0); EOSINOPHIL # 0.1 TH/MM3 (0-0.4); EOSINOPHIL % 1.6 % (0.0-4.0); HEMATOCRIT 29.5 % (35.0-46.0); HEMOGLOBIN 10.1 GM/DL (11.6-15.3); LYMPHOCYTE # 1.7 TH/MM3 (1.0-4.8); MEAN CELL VOLUME 105.9 FL (80.0-100.0); MEAN CORPUSCULAR HEMOGLOBIN 36.4 PG (27.0-34.0); MEAN CORPUSCULAR HGB CONC 34.4 % (32.0-36.0); MONO % 7.7 % (0.0-8.0); MONOCYTE # 0.3 TH/MM3 (0-0.9); NEUT % 52.1 % (16.0-70.0); PLATELET COUNT 135 TH/MM3 (150-450); RED BLOOD COUNT 2.79 MIL/MM3 (4.00-5.30); RED CELL DISTRIBUTION WIDTH 12.9 % (11.6-17.2); WHITE BLOOD COUNT 4.5 TH/MM3 (4.0-11.0)
[2017-09-15] MEDS: DOCUSATE SODIUM 50 MG/SENNA 8.6 MG TAB PO SCH ×4 (08:11→20:01)
[2017-09-15] MEDS: SERTRALINE HCL 100 MG TAB PO SCH ×2 (08:11)
[2017-09-15 08:14] LABS: ALBUMIN 2.6 GM/DL (3.4-5.0); BICARBONATE 24.4 MEQ/L (21.0-32.0); CALCIUM 6.9 MG/DL (8.5-10.1); CALCIUM-PROTEIN CORRECTED 7.8 MG/DL (8.5-10.1); CREATININE 0.24 MG/DL (0.50-1.00); TOTAL BILIRUBIN ADULT 0.6 MG/DL (0.2-1.0); TOTAL PROTEIN 5.3 GM/DL (6.4-8.2)
[2017-09-15] MEDS: SODIUM CHLORIDE 0.9% FLUSH 10 ML FLUSH IV FLUSH SCH ×4 (08:17→20:03)
[2017-09-15] MEDS: SODIUM CHLOR 0.9% 1000 ML INJ 1,000 ML IV SCH ×4 (08:18→20:03)
--- NOTE | 2017-09-15 10:56 | EKG ---
Date Performed: 09/14/2017 Time Performed: 22:27:54 PTAGE: 62 years EKG: Sinus rhythm ST DEVIATION AND MODERATE T-WAVE ABNORMALITY, CONSIDER ANTERIOR ISCHEMIA ABNORMAL ECG NO PREVIOUS TRACING DOCTOR: Jonnathan Andre Interpretating Date/Time 09/15/2017 10:54:41
[2017-09-15] MEDS: ALPRAZolam 0.25 MG TAB PO PRN ×2 (13:15)
--- NOTE | 2017-09-15 14:28 | HHI.PR ---
Subjective Remarks This is a pleasant 62 y/o Female with Mechanical fall and came to ER with left humeral Fracture and complicated Dislocation, alcohol was involved, Osteoarthritis, Anxiety, Depression, Hyperlipidemia, stable seen in her bedroom in the presence of nurse Miss Cerda she will have surgery tomorrow. Objective Vital Signs Date Time Temp Pulse Resp B/P (MAP) Pulse Ox O2 Delivery O2 Flow Rate FiO2 09/15/17 12:00 98.2 59 16 127/67 (87) 92 09/15/17 08:00 98.8 60 16 126/72 (90) 96 09/15/17 05:18 20 09/15/17 04:00 98.7 61 18 124/65 (84) 94 09/15/17 00:00 98.2 68 18 101/49 (66) 96 09/14/17 20:00 97.0 70 18 148/68 (94) 95 09/14/17 16:15 98.1 67 18 144/64 (90) 92 I/O 09/14/17 09/14/17 09/14/17 09/15/17 09/15/17 09/15/17 07:00 15:00 23:00 07:00 15:00 23:00 Intake Total 2000 ml 1354 ml Balance 2000 ml 1354 ml Intake Oral 240 ml IV Total 2000 ml 1114 ml # Voids 0 Result Diagram: 09/15/17 0535 09/15/17 0535 Imaging Last Impressions Chest X-Ray 09/14/17 0850 Signed Impressions: Service Date/Time: Thursday, September 14, 2017 08:59 - CONCLUSION: 1. No acute cardiopulmonary disease. 2. Comminuted left humeral neck fracture. Azar Hull MD Shoulder X-Ray 09/14/17 0658 Signed Impressions: Service Date/Time: Thursday, September 14, 2017 07:13 - CONCLUSION: 1. Comminuted left humeral neck fracture, as above. Azar Hull MD Humerus X-Ray 09/14/17 0658 Signed Impressions: Service Date/Time: Thursday, September 14, 2017 07:23 - CONCLUSION: 1. Comminuted left humeral neck fracture, as above. Azar Hull MD Upper Extremity CT 09/14/17 0000 Signed Impressions: Service Date/Time: Thursday, September 14, 2017 10:19 - CONCLUSION: 1. Comminuted left humeral neck fracture, as above. Azar Hull MD Procedures None Other Results Laboratory Tests Test 09/14/17 08:00 09/15/17 05:35 Prothrombin Time 11.7 SEC Prothromb Time International Ratio 1.1 RATIO Activated Partial Thromboplast Time 23.2 SEC Ethyl Alcohol Level 192 MG/DL White Blood Count 4.5 TH/MM3 Red Blood Count 2.79 MIL/MM3 Hemoglobin 10.1 GM/DL Hematocrit 29.5 % Mean Corpuscular Volume 105.9 FL Mean Corpuscular Hemoglobin 36.4 PG Mean Corpuscular Hemoglobin Concent 34.4 % Red Cell Distribution Width 12.9 % Platelet Count 135 TH/MM3 Mean Platelet Volume 9.0 FL Neutrophils (%) (Auto) 52.1 % Lymphocytes (%) (Auto) 38.0 % Monocytes (%) (Auto) 7.7 % Eosinophils (%) (Auto) 1.6 % Basophils (%) (Auto) 0.6 % Neutrophils # (Auto) 2.4 TH/MM3 Lymphocytes # (Auto) 1.7 TH/MM3 Monocytes # (Auto) 0.3 TH/MM3 Eosinophils # (Auto) 0.1 TH/MM3 Basophils # (Auto) 0.0 TH/MM3 CBC Comment DIFF FINAL Differential Comment Blood Urea Nitrogen 6 MG/DL Creatinine 0.24 MG/DL Random Glucose 66 MG/DL Total Protein 5.3 GM/DL Albumin 2.6 GM/DL Calcium Level 6.9 MG/DL Alkaline Phosphatase 42 U/L Aspartate Amino Transf (AST/SGOT) 35 U/L Alanine Aminotransferase (ALT/SGPT) 38 U/L Total Bilirubin 0.6 MG/DL Sodium Level 142 MEQ/L Potassium Level 3.0 MEQ/L Chloride Level 106 MEQ/L Carbon Dioxide Level 24.4 MEQ/L Anion Gap 12 MEQ/L Estimat Glomerular Filtration Rate 290 ML/MIN Protein Corrected Calcium 7.8 MG/DL Objective Remarks GENERAL: NAD, A&Ox3 HEAD: Normocephalic. NECK: Supple, trachea midline. No lymphadenopathy. EYES: No scleral icterus. No injection or drainage. CARDIOVASCULAR: Regular rate and rhythm without murmurs, gallops, or rubs. RESPIRATORY: Breath sounds equal bilaterally. No accessory muscle use. GASTROINTESTINAL: Abdomen soft, non-tender, nondistended. MUSCULOSKELETAL: No cyanosis, or edema. Left shoulder deformity with splinting SKIN: Warm and dry. NEURO: No focal neurological deficitis. Medications and IVs Current Medications Medications (Trade) Dose Ordered Sig/Marlee Route Start Time Stop Time Status Last Admin Sodium Chloride 1,000 ml @ 83 mls/hr Q12H3M IV 09/14/17 10:33 09/15/17 08:18 (NS Flush) 2 ml UNSCH PRN IV FLUSH 09/14/17 10:45 (NS Flush) 2 ml BID IV FLUSH 09/14/17 21:00 09/14/17 21:36 (Zofran Inj) 4 mg Q6H PRN IVP 09/14/17 10:45 (Dilaudid Pf Inj) 0.5 mg Q3H PRN IV PUSH 09/14/17 10:45 (Dilaudid Pf Inj) 1 mg Q3H PRN IV PUSH 09/14/17 10:45 09/15/17 08:11 (Narcan Inj) 0.4 mg UNSCH PRN IV PUSH 09/14/17 10:45 (Sue-Colace) 1 tab BID PO 09/14/17 21:00 09/14/17 21:35 (Milk Of Magnesia Liq) 30 ml Q12H PRN PO 09/14/17 10:45 (Xanax) 0.25 mg Q8H PRN PO 09/14/17 14:15 09/15/17 13:15 (Zoloft) 100 mg DAILY PO 09/15/17 09:00 09/15/17 08:11 (Desyrel) 300 mg HS PO 09/14/17 21:00 09/14/17 21:35 A/P Assessment and Plan 58 year old female admitted secondary to left shoulder fracture with dislocation Left humerus fracture Left shoulder dislocation Pain medicine, Orthopedic Surgery following, for probable surgery tomorrow. Nothing by mouth for surgery Anxiety Depression Continue Trazodone PRN Xanax Hyperlipidemia Diet Controlled Follow as an outpatient DVT Prophylaxis SCDs Discharge Planning When cleared by Orthopedic surgery. Juan Ramon Minor MD Sep 15, 2017 14:28
[2017-09-15] MEDS: ACETAMINOPHEN/HYDROcodone 325 MG/5 MG TAB PO PRN ×6 (14:42→23:19)
[2017-09-15] MEDS ORDERED: ACETAMINOPHEN/HYDROcodone 325 MG/5 MG TAB PO PRN ×2 (14:45)
[2017-09-15] MEDS: traZODone HCL 100 MG TAB PO SCH ×2 (20:01)
[2017-09-15] MEDS ORDERED: MORPHINE SULFATE 4 MG/ML INJ IV PUSH PRN ×2 (20:30)
[2017-09-16 00:20] VITALS: BP 128/58; PULSE 58; RESP 18; O2SAT 96
[2017-09-16 04:07] VITALS: BP 153/74; PULSE 59; RESP 18; TEMP 97.9; O2SAT 96
[2017-09-16] MEDS: ACETAMINOPHEN/HYDROcodone 325 MG/5 MG TAB PO PRN ×2 (05:10)
[2017-09-16] MEDS ORDERED: ACETAMINOPHEN 1000 MG/100 ML 100 ML IV ONE ×2 (06:50)
--- NOTE | 2017-09-16 06:58 | PD.ORT.PN ---
Subjective Subjective Remarks Fall on wet concrete after rain. Left proximal humerus fracture Objective Vitals Vital Signs Date Time Temp Pulse Resp B/P (MAP) Pulse Ox O2 Delivery O2 Flow Rate FiO2 09/16/17 04:07 97.9 59 18 153/74 (100) 96 09/16/17 00:20 58 18 128/58 (81) 96 09/15/17 23:18 98.2 66 18 177/79 (111) 96 09/15/17 20:27 97.5 63 18 152/75 (100) 97 09/15/17 16:00 98.5 57 16 132/62 (85) 96 09/15/17 12:00 98.2 59 16 127/67 (87) 92 09/15/17 08:00 98.8 60 16 126/72 (90) 96 I/O 09/15/17 09/15/17 09/15/17 09/16/17 09/16/17 09/16/17 07:00 15:00 23:00 07:00 15:00 23:00 Intake Total 1354 ml 240 ml 0 ml Balance 1354 ml 240 ml 0 ml Intake Oral 240 ml 240 ml 0 ml IV Total 1114 ml # Voids 0 1 1 # Bowel Movements 0 0 Result Diagram: 09/15/17 0535 09/15/17 0535 Imaging Last 72 hours Impressions Chest X-Ray 09/14/17 0850 Signed Impressions: Service Date/Time: Thursday, September 14, 2017 08:59 - CONCLUSION: 1. No acute cardiopulmonary disease. 2. Comminuted left humeral neck fracture. Azar Hull MD Shoulder X-Ray 09/14/17 0658 Signed Impressions: Service Date/Time: Thursday, September 14, 2017 07:13 - CONCLUSION: 1. Comminuted left humeral neck fracture, as above. Azar Hull MD Humerus X-Ray 09/14/17 0658 Signed Impressions: Service Date/Time: Thursday, September 14, 2017 07:23 - CONCLUSION: 1. Comminuted left humeral neck fracture, as above. Azar Hull MD Upper Extremity CT 09/14/17 0000 Signed Impressions: Service Date/Time: Thursday, September 14, 2017 10:19 - CONCLUSION: 1. Comminuted left humeral neck fracture, as above. Azar Hull MD Shoulder X-Ray 09/14/17 0000 Signed Impressions: Service Date/Time: Thursday, September 14, 2017 08:54 - CONCLUSION: 1. Comminuted humeral neck fracture, as above. Azar Hull MD Humerus X-Ray 09/14/17 0000 Signed Impressions: Service Date/Time: Thursday, September 14, 2017 08:57 - CONCLUSION: 1. Comminuted humeral neck fracture, as above. Azar Hull MD Objective Remarks Left upper extremity: Pain to palpation over proximal humerus. Skin is intact. Intact sensation distally over the radial ulnar median nerve distributions. Full extension and flexion of all fingers Assessment & Plan Assessment and Plan Left proximal humerus fracture Nothing by mouth Surgery this morning for open reduction internal fixation Sign consents Olivier Mary Jr. Sep 16, 2017 06:58
[2017-09-16] MEDS ORDERED: VANCOMYCIN HCL 1000 MG VIAL ONE ×2 (07:06)
[2017-09-16] MEDS ORDERED: GENTAMICIN SULFATE 80 MG/2 ML VIAL ONE ×2 (07:07)
[2017-09-16] MEDS ORDERED: ceFAZolin INJ 1,000 MG VIAL ONE ×2 (07:07)
[2017-09-16] MEDS ORDERED: SODIUM CHLOR 0.9% 250 ML INJ 250 ML ONE ×2 (07:07)
[2017-09-16 07:20] VITALS: BP 155/69; PULSE 61; RESP 18; TEMP 97.8; O2SAT 95
[2017-09-16 07:50] LABS: BASOPHIL % 0.7 % (0.0-2.0); EOSINOPHIL # 0.1 TH/MM3 (0-0.4); EOSINOPHIL % 1.6 % (0.0-4.0); HEMATOCRIT 31.2 % (35.0-46.0); HEMOGLOBIN 10.9 GM/DL (11.6-15.3); LYMPH % 20.1 % (9.0-44.0); LYMPHOCYTE # 0.9 TH/MM3 (1.0-4.8); MEAN CELL VOLUME 104.7 FL (80.0-100.0); MEAN CORPUSCULAR HEMOGLOBIN 36.5 PG (27.0-34.0); MEAN CORPUSCULAR HGB CONC 34.8 % (32.0-36.0); MONO % 6.2 % (0.0-8.0); MONOCYTE # 0.3 TH/MM3 (0-0.9); NEUT % 71.4 % (16.0-70.0); PLATELET COUNT 140 TH/MM3 (150-450); RED BLOOD COUNT 2.98 MIL/MM3 (4.00-5.30); RED CELL DISTRIBUTION WIDTH 12.8 % (11.6-17.2); WHITE BLOOD COUNT 4.2 TH/MM3 (4.0-11.0)
[2017-09-16] MEDS: SODIUM CHLORIDE 0.9% FLUSH 10 ML FLUSH IV FLUSH SCH ×2 (07:58)
[2017-09-16] MEDS: DOCUSATE SODIUM 50 MG/SENNA 8.6 MG TAB PO SCH ×4 (07:58→22:06)
[2017-09-16 08:07] LABS: BICARBONATE 26.5 MEQ/L (21.0-32.0); CALCIUM 7.9 MG/DL (8.5-10.1); CREATININE 0.29 MG/DL (0.50-1.00)
--- NOTE | 2017-09-16 08:21 | MB ---
cc: BATOOL KNOWLES DATE OF CONSULTATION: 09/15/2017 REASON FOR CONSULTATION Left shoulder fracture. HISTORY OF PRESENT ILLNESS The patient is a 62-year-old female who last night had a fall which was mechanical in nature. She injured the left shoulder, felt immediate pain. She does describe some numbness around the shoulder but not significantly around the fingertips. She went to [facility]. She was found to have a significant displaced fracture. There was concern for a dislocation. The patient was transferred to the main hospital after I discussed the case with the emergency room physician and I reviewed the images. The patient denies any loss of consciousness. She says that the left shoulder did not have any previous problems. The right shoulder had some issue which sounds like a cyst around the scapula or acromial region. The patient denies pain in other areas such as the legs. PAST MEDICAL HISTORY Medical history is positive for: 1. Osteoarthritis. 2. Anxiety. 3. Depression. 4. Hyperlipidemia. 5. History of pancreatitis. 6. Gastritis. 7. Ulcer. 8. Back pain. PAST SURGICAL HISTORY . REVIEW OF SYSTEMS 12-point review of systems is negative except as noted in the history of present illness. MEDICATIONS Trazodone and Sertraline. ALLERGIES PENICILLIN WHICH CAUSES RASH AND ITCHING. FAMILY HISTORY Noncontributory. SOCIAL HISTORY The patient does drink alcohol intermittently and smokes a couple of cigarettes per day. PHYSICAL EXAMINATION VITAL SIGNS: The patient's temperature is 98.2, pulse is 59, respiration 16, blood pressure 127/67. GENERAL: She is awake, alert, and oriented x3. She has normal affect, insight and judgment. She is in minimal distress due to pain. She has a sling applied to the left upper extremity. HEAD: Her head is atraumatic. NECK: Neck is supple. HEART: Regular rate and rhythm. LUNGS: Clear to auscultation bilaterally. ABDOMEN: Soft, nontender, nondistended. BACK: Shows no CVA tenderness. EYES: Extraocular muscles are intact. MOUTH: Oropharynx is moist. EXTREMITIES: Left upper extremity has some mild swelling about the left shoulder. No wounds are noted. She actually moves her fingers very well. She has an intact extensor pollicis longus, abductor pollicis brevis and dorsal interossei. She has normal sensation to the fingertips and 2+ radial pulse. Examination of the right upper extremity shows good range of motion of the shoulder, elbow and wrist. Bilateral knees and ankles have no swelling and no tenderness. LABORATORY STUDIES Reveals hematocrit of 29.5, white cell count is 4.5, platelets of 135. Coagulation studies INR is 1.1. Chemistry shows calcium low at 6.9, creatinine 0.24. Toxicology shows ethyl alcohol of 192. IMAGING STUDIES I have reviewed the x-rays and also the CT of the shoulder which I had recommended for the patient to get. I do agree with the report as showing that there is significantly displaced, at least three-part fracture of the proximal humerus. I do not see specific dislocation. IMPRESSION Left proximal humerus significantly displaced three-part fracture. DECISION MAKING Overall with the position of the fracture fragments, I feel that nonoperative management likely has poor chance of having good outcome as far as function is concerned. Based on the complexity and nature of this injury, I have recommended for the patient to talk to my partner, Dr. David Kidd, who is a trauma subspecialist for consideration of surgical management. Surgical management would include open reduction, internal fixation versus hemiarthroplasty. I discussed both types of surgeries with the patient, she said she would lean towards fixation rather than hemiarthroplasty. I discussed the risks and benefits of surgical management such as injury to nerves, blood vessels, bleeding, infection, failure of hardware, need for reoperation, continued pain, loss of range of motion in associated joints, DVT, pulmonary embolus, pneumonia and . Additionally we discussed the type of functional status she likely is to expect with nonoperative management, which I do think is potentially going to be very limited as far as her range of motion and strength that she could achieve in the shoulder, plus she could also have quite a bit of pain long-term because of rotation of the greater tuberosity creating some impingement with attempted motion. She does understand and all questions have been answered. MD PEDRO Hudson/ARTIE /4:19 PM /9:03 AM
[2017-09-16] MEDS ORDERED: CALCTAB19 PO ×2 (09:01)
[2017-09-16] MEDS ORDERED: ERGO1CAP30 PO ×2 (09:01)
[2017-09-16] MEDS ORDERED: HYDR-3583 PO ×2 (09:01)
[2017-09-16] MEDS ORDERED: diphenhydrAMINE HCL 25 MG CAP PO PRN ×2 (09:45)
[2017-09-16] MEDS ORDERED: SODIUM CHLORIDE 0.9% FLUSH 5 ML FLUSH IVF PRN ×2 (09:45)
--- NOTE | 2017-09-16 09:48 | PD.OP ---
cc: David Hernandez MD Operative Report Date of Surgery: Sep 16, 2017 Preoperative Diagnosis: Displaced left proximal humerus fracture Postoperative Diagnosis: Procedure: Open reduction internal fixation left proximal humerus Anesthesia: Gen. Surgeon: David Hernandez Embossing Machine Operator Helper(s): ALONDRA Tom PA-C The surgical procedure was assisted by my physician reference library assistant. My P.A. presence was necessary throughout this case for the manipulation and positioning of the surgical extremity. My P.A. was assisting me throughout the duration of this procedure. The skill set of a physician reference library assistant was medically necessary to complete this procedure. During the surgical case the neurosurgical nurse was working at the back table and the physician reference library assistant was directly assisting me. Operation and Findings: Patient was seen and evaluated preoperatively. Patient was found to have a displaced proximal humerus fracture. The risks and benefits of surgical and nonsurgical options were discussed in detail and informed consent was obtained for surgery. Patient was brought to the operating room and placed on or table. IV sedation and GETA were administered by anesthesiologist. Antibiotics were given prior to incision. Left arm and shoulder were prepped with alcohol followed by Hibiclens and draped usual sterile fashion. Timeout procedure was performed. Procedure began with a 5 inch incision over the anterior shoulder. Cephalic vein was identified. A deltopectoral approach was utilized. The fracture was now visualized. Soft tissue was retracted. A #5 FiberWire suture was placed into the rotator rotator cuff and greater tuberosity. Attention was now turned to reduction. Gentle traction was applied. The humeral shaft was reduced to the humeral head. Fracture was manipulated to achieve excellent reduction. Multiplanar fluoroscopy confirmed well aligned fracture. Multiple K wires were used to hold provisional fixation. A Synthes proximal humerus plate was selected. Plate was provisionally held in place K wires. 3.5 cortical screws were used to compress plate to bone. Fluoroscopy confirmed appropriate plate placement and fracture reduction. Multiple locking screws were now placed in the humeral head. Screws were predrilled and premeasured for appropriate length. Care was taken not to penetrate the articular surface. Additional screws were placed in the humeral shaft. The FiberWire suture was passed through the holes of the plate and sutured to the plate for additional stability. Final fluoroscopy revealed well aligned fracture with well-placed hardware. Wound was thoroughly irrigated. Fascia was closed with #1 Vicryl, subcutaneous tissues closed with 3-0 Vicryl, and skin was closed with amna. Sterile dressings were applied. Patient was placed into a sling. Patient was awakened and transferred to recovery in stable condition. Needle and sponge counts were correct. David Hernandez MD Sep 16, 2017 09:48
--- NOTE | 2017-09-16 09:48 | PD.OP ---
cc: David Hrenandez MD Operative Report Date of Surgery: Sep 16, 2017 Preoperative Diagnosis: Displaced left proximal humerus fracture Postoperative Diagnosis: Procedure: Open reduction internal fixation left proximal humerus Anesthesia: Gen. Surgeon: David Hernandez Bellman(s): ALONDRA Tom PA-C The surgical procedure was assisted by my physician licensed nursing assistant. My P.A. presence was necessary throughout this case for the manipulation and positioning of the surgical extremity. My P.A. was assisting me throughout the duration of this procedure. The skill set of a physician licensed nursing assistant was medically necessary to complete this procedure. During the surgical case the surgical specialist was working at the back table and the physician licensed nursing assistant was directly assisting me. Operation and Findings: Patient was seen and evaluated preoperatively. Patient was found to have a displaced proximal humerus fracture. The risks and benefits of surgical and nonsurgical options were discussed in detail and informed consent was obtained for surgery. Patient was brought to the operating room and placed on or table. IV sedation and GETA were administered by anesthesiologist. Antibiotics were given prior to incision. Left arm and shoulder were prepped with alcohol followed by Hibiclens and draped usual sterile fashion. Timeout procedure was performed. Procedure began with a 5 inch incision over the anterior shoulder. Cephalic vein was identified. A deltopectoral approach was utilized. The fracture was now visualized. Soft tissue was retracted. A #5 FiberWire suture was placed into the rotator rotator cuff and greater tuberosity. Attention was now turned to reduction. Gentle traction was applied. The humeral shaft was reduced to the humeral head. Fracture was manipulated to achieve excellent reduction. Multiplanar fluoroscopy confirmed well aligned fracture. Multiple K wires were used to hold provisional fixation. A Synthes proximal humerus plate was selected. Plate was provisionally held in place K wires. 3.5 cortical screws were used to compress plate to bone. Fluoroscopy confirmed appropriate plate placement and fracture reduction. Multiple locking screws were now placed in the humeral head. Screws were predrilled and premeasured for appropriate length. Care was taken not to penetrate the articular surface. Additional screws were placed in the humeral shaft. The FiberWire suture was passed through the holes of the plate and sutured to the plate for additional stability. Final fluoroscopy revealed well aligned fracture with well-placed hardware. Wound was thoroughly irrigated. Fascia was closed with #1 Vicryl, subcutaneous tissues closed with 3-0 Vicryl, and skin was closed with amna. Sterile dressings were applied. Patient was placed into a sling. Patient was awakened and transferred to recovery in stable condition. Needle and sponge counts were correct. David Hernandez MD Sep 16, 2017 09:48
--- NOTE | 2017-09-16 09:48 | PD.OP ---
cc: David Hernandez MD Operative Report Date of Surgery: Sep 16, 2017 Preoperative Diagnosis: Displaced left proximal humerus fracture Postoperative Diagnosis: Procedure: Open reduction internal fixation left proximal humerus Anesthesia: Gen. Surgeon: David Hernandez Lab Analyst(s): ALONDRA Tom PA-C The surgical procedure was assisted by my physician orthopedic assistant. My P.A. presence was necessary throughout this case for the manipulation and positioning of the surgical extremity. My P.A. was assisting me throughout the duration of this procedure. The skill set of a physician orthopedic assistant was medically necessary to complete this procedure. During the surgical case the certified surgical tech/first assistant was working at the back table and the physician orthopedic assistant was directly assisting me. Operation and Findings: Patient was seen and evaluated preoperatively. Patient was found to have a displaced proximal humerus fracture. The risks and benefits of surgical and nonsurgical options were discussed in detail and informed consent was obtained for surgery. Patient was brought to the operating room and placed on or table. IV sedation and GETA were administered by anesthesiologist. Antibiotics were given prior to incision. Left arm and shoulder were prepped with alcohol followed by Hibiclens and draped usual sterile fashion. Timeout procedure was performed. Procedure began with a 5 inch incision over the anterior shoulder. Cephalic vein was identified. A deltopectoral approach was utilized. The fracture was now visualized. Soft tissue was retracted. A #5 FiberWire suture was placed into the rotator rotator cuff and greater tuberosity. Attention was now turned to reduction. Gentle traction was applied. The humeral shaft was reduced to the humeral head. Fracture was manipulated to achieve excellent reduction. Multiplanar fluoroscopy confirmed well aligned fracture. Multiple K wires were used to hold provisional fixation. A Synthes proximal humerus plate was selected. Plate was provisionally held in place K wires. 3.5 cortical screws were used to compress plate to bone. Fluoroscopy confirmed appropriate plate placement and fracture reduction. Multiple locking screws were now placed in the humeral head. Screws were predrilled and premeasured for appropriate length. Care was taken not to penetrate the articular surface. Additional screws were placed in the humeral shaft. The FiberWire suture was passed through the holes of the plate and sutured to the plate for additional stability. Final fluoroscopy revealed well aligned fracture with well-placed hardware. Wound was thoroughly irrigated. Fascia was closed with #1 Vicryl, subcutaneous tissues closed with 3-0 Vicryl, and skin was closed with amna. Sterile dressings were applied. Patient was placed into a sling. Patient was awakened and transferred to recovery in stable condition. Needle and sponge counts were correct. David Hernandez MD Sep 16, 2017 09:48
[2017-09-16] MEDS ORDERED: DO NOT ADM ANY ANTICOAGULANT DRUGS PRN ×2 (10:08)
[2017-09-16] MEDS ORDERED: *ONDANSETRON 4 MG VIAL PERIprocedural Use ONLY ONE ×2 (10:18)
[2017-09-16] MEDS ORDERED: *morphine SULFATE 8 MG/ML PERIprocedure ONLY ONE ×4 (10:18→10:52)
[2017-09-16] MEDS: SODIUM CHLOR 0.9% 1000 ML INJ 1,000 ML IV SCH ×4 (10:45→23:20)
[2017-09-16] MEDS ORDERED: ERGOCALCIFEROL (VIT D2) 50,000 UNIT CAP PO SCH ×2 (11:00)
[2017-09-16 11:15] VITALS: BP 135/77; PULSE 67; RESP 18; TEMP 98; O2SAT 99
[2017-09-16] MEDS ORDERED: POTASSIUM CHLORIDE 25 MEQ EFFERVESCENT TAB PO ONE ×2 (11:30)
[2017-09-16] MEDS: ACETAMINOPHEN/HYDROcodone 325 MG/10 MG TAB PO PRN ×6 (12:44→18:45)
[2017-09-16] MEDS: CALCIUM/VITAMIN D 250 MG/125 U TAB PO SCH ×4 (12:44→18:45)
[2017-09-16] MEDS: SERTRALINE HCL 100 MG TAB PO SCH ×2 (12:46)
--- NOTE | 2017-09-16 13:00 | HHI.PR ---
Subjective Remarks Follow-up for humeral fracture Patient seen right after surgery. She has no complaints. Patient stated that if she goes home she is concerned because she has no help. Objective Vitals Vital Signs Date Time Temp Pulse Resp B/P (MAP) Pulse Ox O2 Delivery O2 Flow Rate FiO2 09/16/17 11:08 60 12 136/67 (90) 98 Nasal Cannula 2 09/16/17 11:00 62 13 132/58 (82) 98 Nasal Cannula 2 09/16/17 10:45 98.9 67 12 138/67 (90) 99 Nasal Cannula 2 09/16/17 10:30 64 13 156/72 (100) 98 Nasal Cannula 2 09/16/17 10:15 67 19 141/62 (88) 100 Nasal Cannula 2 09/16/17 10:10 99.0 82 16 142/67 (92) 99 Nasal Cannula 2 09/16/17 07:20 97.8 61 18 155/69 (97) 95 09/16/17 04:07 97.9 59 18 153/74 (100) 96 09/16/17 00:20 58 18 128/58 (81) 96 09/15/17 23:18 98.2 66 18 177/79 (111) 96 09/15/17 20:27 97.5 63 18 152/75 (100) 97 09/15/17 16:00 98.5 57 16 132/62 (85) 96 I/O 09/15/17 09/15/17 09/15/17 09/16/17 09/16/17 09/16/17 07:00 15:00 23:00 07:00 15:00 23:00 Intake Total 1354 ml 240 ml 0 ml 800 ml Output Total 100 ml Balance 1354 ml 240 ml 0 ml 700 ml Intake Oral 240 ml 240 ml 0 ml IV Total 1114 ml 0 ml Other 800 ml Output Estimated Blood Loss 100 ml # Voids 0 1 1 # Bowel Movements 0 0 Result Diagram: 09/16/1772409/16/17724 Objective Remarks GENERAL: CARDIOVASCULAR: Regular rate and rhythm without murmurs, gallops, or rubs. RESPIRATORY: Breath sounds equal bilaterally. No accessory muscle use. GASTROINTESTINAL: Abdomen soft, non-tender, nondistended. MUSCULOSKELETAL: Left arm in bandages. Sensation and radial pulse intact. BACK: Nontender without obvious deformity. No CVA tenderness. Medications and IVs Current Medications Ketorolac Tromethamine (Toradol Inj) 30 mg ONCE ONCE IV PUSH Last administered on 09/14/17 07:08; Start 09/14/17 at 07:00; Stop 09/14/17 at 07:01 ; Status DC Hydromorphone HCl (Dilaudid Pf Inj) 0.5 mg ONCE ONCE IVS Last administered on 09/14/17 08:05; Start 09/14/17 at 07:45; Stop 09/14/17 at 07:46; Status DC Ondansetron HCl (Zofran Inj) 4 mg ONCE ONCE IVP Last administered on 08:04; Start 09/14/17 at 07:45; Stop 09/14/17 at 07:46; Status DC Sodium Chloride 1,000 ml @ 1,000 mls/hr Q1H IV Last administered on 09/14/17 08:04; Start 09/14/17 at 07:40; Stop 09/14/17 at 08:39; Status DC Sodium Chloride (NS Flush) 2 ml UNSCH PRN IV FLUSH FLUSH AFTER USING IV ACCESS ; Start 09/14/17 at 07:45; Stop 09/14/17 at 10:39; Status DC Propofol (Diprivan 200 Mg/20 ml Inj) 50 mg ONCE ONCE IV Last administered on 09/14/17 08:05; Start 09/14/17 at 07:45; Stop 09/14/17 at 07:46; Status DC Sodium Chloride 1,000 ml @ 999 mls/hr BOLUS ONCE IV Last administered on 09/14 09:34; Start 09/14/17 at 09:30; Stop 09/14/17 at 10:30; Status DC Hydromorphone HCl (Dilaudid Pf Inj) 0.5 mg ONCE ONCE IV PUSH Last administered on 09/14/17 10:38; Start 09/14/17 at 10:45; Stop 09/14/17 at 10:46 ; Status DC Sodium Chloride 1,000 ml @ 83 mls/hr Q12H3M IV Last administered on 09/15/17 20:03; Start 09/14/17 at 10:33 Sodium Chloride (NS Flush) 2 ml UNSCH PRN IV FLUSH FLUSH AFTER USING IV ACCESS ; Start 09/14/17 at 10:45; Stop 09/16/17 at 10:22; Status DC Sodium Chloride (NS Flush) 2 ml BID IV FLUSH Last administered on 09/15/17 20: 03; Start 09/14/17 at 21:00; Stop 09/16/17 at 10:22; Status DC Ondansetron HCl (Zofran Inj) 4 mg Q6H PRN IVP NAUSEA OR VOMITING; Start at 10:45 Hydromorphone HCl (Dilaudid Pf Inj) 0.5 mg Q3H PRN IV PUSH Pain 3-5; if unable to take PO; Start 09/14/17 at 10:45; Stop 09/15/17 at 14:32; Status DC Hydromorphone HCl (Dilaudid Pf Inj) 1 mg Q3H PRN IV PUSH Pain 6-10;if unable to take PO Last administered on 09/15/17 08:11; Start 09/14/17 at 10:45; Stop 09/15/17 at 14:32; Status DC Naloxone HCl (Narcan Inj) 0.4 mg UNSCH PRN IV PUSH SEE LABEL COMMENTS; Start 09/14/17 at 10:45 Senna/Docusate Sodium (Sue-Colace) 1 tab BID PO Last administered on 20:01; Start 09/14/17 at 21:00 Magnesium Hydroxide (Milk Of Magnesia Liq) 30 ml Q12H PRN PO Mild constipation ; Start 09/14/17 at 10:45 Alprazolam (Xanax) 0.25 mg Q8H PRN PO ANXIETY Last administered on 09/15/17 13 :15; Start 09/14/17 at 14:15 Sertraline HCl (Zoloft) 100 mg DAILY PO Last administered on 09/16/17 12:46; Start 09/15/17 at 09:00 Trazodone HCl (Desyrel) 300 mg HS PO Last administered on 09/15/17 20:01; Start 09/14/17 at 21:00 Acetaminophen/ Hydrocodone Bitart ([place] 5-325 Mg) 1 tab Q4H PRN PO PAIN SCALE 1 TO 4; Start 09/15/17 at 14:45; Stop 09/16/17 at 10:25; Status DC Acetaminophen/ Hydrocodone Bitart ([place] 5-325 Mg) 2 tab Q4H PRN PO PAIN SCALE 5 TO 10 Last administered on 09/16/17 05:10; Start 09/15/17 at 14:45; Stop 09/16/17 at 10:25; Status DC Morphine Sulfate (Morphine Inj) 3 mg Q3H PRN IV PUSH breakthrough pain Last administered on 09/15/17 21:00; Start 09/15/17 at 20:30; Stop 09/16/17 at 10:26 ; Status DC Acetaminophen 100 ml @ As Directed STK-MED ONCE IV ; Start 09/16/17 at 06:50; Stop 09/16/17 at 06:51; Status DC Vancomycin HCl (Vancomycin Inj) 1,000 mg STK-MED ONCE .ROUTE Last administered on 09/16/17 08:33; Start 09/16/17 at 07:06; Stop 09/16/17 at 07:07; Status DC Cefazolin Sodium (Ancef Inj) 2,000 mg STK-MED ONCE .ROUTE ; Start 09/16/17 at 07 :07; Stop 09/16/17 at 07:08; Status DC Gentamicin Sulfate (Gentamicin Inj) 240 mg STK-MED ONCE .ROUTE ; Start 09/16/17 at 07:07; Stop 09/16/17 at 07:08; Status DC Sodium Chloride 250 ml @ As Directed STK-MED ONCE .ROUTE ; Start 09/16/17 at 07 :07; Stop 09/16/17 at 07:08; Status DC IV Flush (NS Flush) 2 ml UNSCH PRN IVF FLUSH AFTER USING IV ACCESS; Start 09/16 at 09:45 IV Flush (NS Flush) 2 ml BID IVF ; Start 09/16/17 at 21:00 Cefazolin Sodium/ Dextrose 50 ml @ 100 mls/hr Q8H IV ; Start 09/16/17 at 15:00 ; Stop 09/17/17 at 07:29 Acetaminophen/ Hydrocodone Bitart ([place] 10-325 Mg) 1 tab Q3H PRN PO pain 2<10 Last administered on 09/16/17 12:44; Start 09/16/17 at 09:45 Calcium/Vitamin D (Oscal-D 250-125) 250 mg TID PO Last administered on 12:44; Start 09/16/17 at 13:00 Diphenhydramine HCl (Benadryl) 25 mg Q6H PRN PO ITCHING; Start 09/16/17 at 09: 45 Morphine Sulfate (Morphine Inj) 4 mg Q3H PRN IV PUSH break thru pain; Start at 09:45 Ergocalciferol (Drisdol) 50,000 units Q7D PO Last administered on 09/16/17 12: 44; Start 09/16/17 at 11:00 Cholecalciferol (Vitamin D3) 1,000 units DAILY PO ; Start 09/17/17 at 09:00 Morphine Sulfate (*morphine INJ PERIprocedure ONLY) 8 mg STK-MED ONCE .ROUTE Last administered on 09/16/17 10:18; Start 09/16/17 at 10:18; Stop 09/16/17 at 10:19; Status DC Ondansetron HCl (*ZOFRAN INJ PERIprocedural ONLY) 4 mg STK-MED ONCE .ROUTE Last administered on 09/16/17 10:18; Start 09/16/17 at 10:18; Stop 09/16/17 at 10:19; Status DC Morphine Sulfate (*morphine INJ PERIprocedure ONLY) 8 mg STK-MED ONCE .ROUTE Last administered on 09/16/17 10:52; Start 09/16/17 at 10:52; Stop 09/16/17 at 10:53; Status DC Miscellaneous Information ALL NURSING DEPARTME... UNSCH PRN .XX SEE LABEL COMMENTS; Start 09/16/17 at 10:08; Stop 09/17/17 at 10:07 Potassium Bicarb/ Potassium Chloride (K-Lyte Cl Eff) 25 meq ONCE ONCE PO Last administered on 09/16/17 12:45; Start 09/16/17 at 11:30; Stop 09/16/17 at 11:43; Status DC A/P Problem List: (1) Fracture dislocation of left shoulder joint ICD Code: S42.92XA - Fracture of left shoulder girdle, part unspecified, initial encounter for closed fracture Status: Acute (2) Contusion of left arm ICD Code: S40.022A - Contusion of left upper arm, initial encounter Status: Acute (3) Fall ICD Code: W19.XXXA - Unspecified fall, initial encounter Status: Acute Assessment and Plan 58 year old female admitted secondary to left shoulder fracture with dislocation Left humerus fracture Left shoulder dislocation -Secondary to mechanical fall. -s/p Open reduction internal fixation left proximal humerus -Management per orthopedic. Anxiety Depression -Continue Trazodone -PRN Xanax Hyperlipidemia -Diet Controlled -Follow as an outpatient DVT Prophylaxis SCDs Discharge Planning Once cleared by orthopedic surgeon patient is clear for discharge. Problem Qualifiers (1) Fracture dislocation of left shoulder joint: Qualified Codes: S42.92XA - Fracture of left shoulder girdle, part unspecified , initial encounter for closed fracture (2) Contusion of left arm: Qualified Codes: S40.022A - Contusion of left upper arm, initial encounter (3) Fall: Qualified Codes: W19.XXXA - Unspecified fall, initial encounter Lacey Pandya MD Sep 16, 2017 13:00
--- NOTE | 2017-09-16 13:10 | RADRPT ---
EXAM DATE/TIME: 09/16/2017 09:34 [facility] COMPARISON: HUMERUS LEFT (MIN 2VWS), September 14, 2017, 8:57. INDICATIONS : Left proximal humerus fracture repair. OR. MEDICAL HISTORY : Hypercholesterolemia. Pancreatitis. Hyperlipidema. SURGICAL HISTORY : Mastectomy. ENCOUNTER: Initial ACUITY: 1 day PAIN SCORE: Non-responsive. LOCATION: Left proximal humerus FINDINGS: Plate with screws is seen bridging the fracture of the proximal humerus. Alignment anatomic. CONCLUSION: ORIF proximal humerus anatomic alignment. Ricco Steele MD FACR on September 16, 2017 at 13:07 Board Certified Radiologist. This report was verified electronically.
[2017-09-16] MEDS: ceFAZolin 2 GM PREMIX 50 ML IV SCH ×4 (15:46→22:05)
[2017-09-16 16:00] VITALS: BP 138/73; PULSE 71; RESP 18; TEMP 97.8; O2SAT 98
[2017-09-16 20:00] VITALS: BP 134/60; PULSE 77; RESP 15; TEMP 98.7; O2SAT 96
[2017-09-16] MEDS: MORPHINE SULFATE 4 MG/ML INJ IV PUSH PRN ×2 (22:06)
[2017-09-16] MEDS: traZODone HCL 100 MG TAB PO SCH ×2 (22:06)
[2017-09-16] MEDS: SODIUM CHLORIDE 0.9% FLUSH 5 ML FLUSH IVF SCH ×2 (22:08)
[2017-09-17] MEDS: ACETAMINOPHEN/HYDROcodone 325 MG/10 MG TAB PO PRN ×10 (01:29→16:42)
[2017-09-17 04:00] VITALS: BP 135/71; PULSE 71; RESP 16; TEMP 99; O2SAT 96
[2017-09-17] MEDS: MORPHINE SULFATE 4 MG/ML INJ IV PUSH PRN ×2 (04:17)
[2017-09-17] MEDS: ceFAZolin 2 GM PREMIX 50 ML IV SCH ×2 (06:15)
--- NOTE | 2017-09-17 06:37 | PD.ORT.PN ---
Subjective Subjective Remarks POD 1 s/p ORIF left proximal humerus fx doing well. reports pain but controlled. resting comfortably Objective Vitals Vital Signs Date Time Temp Pulse Resp B/P (MAP) Pulse Ox O2 Delivery O2 Flow Rate FiO2 09/17/17 04:26 17 09/17/17 02:29 19 09/17/17 00:14 Room Air 09/16/17 20:00 98.7 77 15 134/60 (84) 96 09/16/17 16:00 97.8 71 18 138/73 (94) 98 09/16/17 11:15 98.0 67 18 135/77 (96) 99 09/16/17 11:08 60 12 136/67 (90) 98 Nasal Cannula 2 09/16/17 11:00 62 13 132/58 (82) 98 Nasal Cannula 2 09/16/17 10:45 98.9 67 12 138/67 (90) 99 Nasal Cannula 2 09/16/17 10:30 64 13 156/72 (100) 98 Nasal Cannula 2 09/16/17 10:15 67 19 141/62 (88) 100 Nasal Cannula 2 09/16/17 10:10 99.0 82 16 142/67 (92) 99 Nasal Cannula 2 09/16/17 07:20 97.8 61 18 155/69 (97) 95 I/O 09/16/17 09/16/17 09/16/17 09/17/17 09/17/17 09/17/17 07:00 15:00 23:00 07:00 15:00 23:00 Intake Total 0 ml 1280 ml 580 ml Output Total 100 ml Balance 0 ml 1180 ml 580 ml Intake Oral 0 ml 480 ml 480 ml IV Total 0 ml 100 ml Other 800 ml Output Estimated Blood Loss 100 ml # Voids 1 2 2 # Bowel Movements 0 0 0 Result Diagram: 09/16/1772409/16/17724 Imaging Last 72 hours Impressions Chest X-Ray 09/14/17 0850 Signed Impressions: Service Date/Time: Thursday, September 14, 2017 08:59 - CONCLUSION: 1. No acute cardiopulmonary disease. 2. Comminuted left humeral neck fracture. Azar Hull MD Shoulder X-Ray 09/14/17 0658 Signed Impressions: Service Date/Time: Thursday, September 14, 2017 07:13 - CONCLUSION: 1. Comminuted left humeral neck fracture, as above. Azar Hull MD Humerus X-Ray 09/14/17 0658 Signed Impressions: Service Date/Time: Thursday, September 14, 2017 07:23 - CONCLUSION: 1. Comminuted left humeral neck fracture, as above. Azar Hull MD Upper Extremity CT 09/14/17 0000 Signed Impressions: Service Date/Time: Thursday, September 14, 2017 10:19 - CONCLUSION: 1. Comminuted left humeral neck fracture, as above. Azar Hull MD Shoulder X-Ray 09/14/17 0000 Signed Impressions: Service Date/Time: Thursday, September 14, 2017 08:54 - CONCLUSION: 1. Comminuted humeral neck fracture, as above. Azar Hull MD Humerus X-Ray 09/14/17 0000 Signed Impressions: Service Date/Time: Thursday, September 14, 2017 08:57 - CONCLUSION: 1. Comminuted humeral neck fracture, as above. Azar Hull MD Objective Remarks LUE: Dressings clean and dry. intact. NVI. +sling. Assessment & Plan Assessment and Plan 1) Left proximal humerus fracture s/p ORIF - POD 1 -NWB -sling at all times -pendulums 1-2x/day -daily dressing changes POD 2 -patient has no help at home and not safe for DC home by self. CM to look into rehab options -f/u with Marti or [facility] in 2 weeks Uli Jain Sep 17, 2017 06:37
[2017-09-17] MEDS: SERTRALINE HCL 100 MG TAB PO SCH ×2 (07:37)
[2017-09-17] MEDS: DOCUSATE SODIUM 50 MG/SENNA 8.6 MG TAB PO SCH ×2 (07:37)
[2017-09-17] MEDS: CALCIUM/VITAMIN D 250 MG/125 U TAB PO SCH ×6 (07:37→16:42)
[2017-09-17] MEDS: SODIUM CHLORIDE 0.9% FLUSH 5 ML FLUSH IVF SCH ×2 (07:38)
[2017-09-17 08:00] VITALS: BP 143/74; PULSE 78; RESP 18; TEMP 98.1; O2SAT 93
[2017-09-17] MEDS ORDERED: CHOLECALCIFEROL (VIT D3) 1000 UNIT TAB PO SCH ×2 (09:00)
[2017-09-17] MEDS ORDERED: POTASSIUM CHLORIDE 20 MEQ CONTROLLED RELEASE TAB PO ONE ×2 (11:30)
[2017-09-17] MEDS ORDERED: SENN1TAB PO ×2 (11:52)
--- NOTE | 2017-09-17 11:54 | HHI.FF ---
Face to Face Verification Diagnosis: (1) Fracture dislocation of left shoulder joint Home Health Nursing Order: Wound care and dressing changes Instructions: daily wound dressing changes on POD#2 with xeroform and primapore. I have seen patient Genoveva Vann on 09/17/17. My clinical findings support the need for the requested home health care services because: Limited ability to care for self I certify that my clinical findings support that this patient is homebound because: Post-op weakness Lacey Pandya MD Sep 17, 2017 11:54
--- NOTE | 2017-09-17 11:56 | HHI.DS ---
Discharge Summary Admission Date Sep 14, 2017 at 10:33 Discharge Date: Sep 17, 2017 Admitting Diagnosis L Humerus Fracture w/ Dislocation of Humeral Head (1) Fracture dislocation of left shoulder joint ICD Code: S42.92XA - Fracture of left shoulder girdle, part unspecified, initial encounter for closed fracture Diagnosis: Principal Status: Acute (2) Contusion of left arm ICD Code: S40.022A - Contusion of left upper arm, initial encounter Diagnosis: Principal Status: Acute (3) Fall ICD Code: W19.XXXA - Unspecified fall, initial encounter Diagnosis: Secondary Status: Acute Procedures see hospital course Brief History - From Admission Mrs. Vann is a 62-year-old female. Last night she had a fall and has fractured her left humerus. Humerus fractures complicated by dislocation. Alcohol was involved. The patient is questioned in regards to her alcohol intake. She says she drinks intermittently and denies drinking on a daily basis. Her only previous surgeries are C-sections. No other complaints. She denies any syncope or dizziness. No chest pain. No shortness of breath. CBC/BMP: 09/16/17 0725 09/16/17 0725 Significant Findings Laboratory Tests Test 09/15/17 05:35 09/16/17 07:25 Red Blood Count 2.79 MIL/MM3 (4.00-5.30) 2.98 MIL/MM3 (4.00-5.30) Hemoglobin 10.1 GM/DL (11.6-15.3) 10.9 GM/DL (11.6-15.3) Hematocrit 29.5 % (35.0-46.0) 31.2 % (35.0-46.0) Mean Corpuscular Volume 105.9 FL (80.0-100.0) 104.7 FL (80.0-100.0) Mean Corpuscular Hemoglobin 36.4 PG (27.0-34.0) 36.5 PG (27.0-34.0) Platelet Count 135 TH/MM3 (150-450) 140 TH/MM3 (150-450) Blood Urea Nitrogen 6 MG/DL (7-18) 3 MG/DL (7-18) Creatinine 0.24 MG/DL (0.50-1.00) 0.29 MG/DL (0.50-1.00) Random Glucose 66 MG/DL (74-106) 117 MG/DL (74-106) Total Protein 5.3 GM/DL (6.4-8.2) Albumin 2.6 GM/DL (3.4-5.0) Calcium Level 6.9 MG/DL (8.5-10.1) 7.9 MG/DL (8.5-10.1) Alkaline Phosphatase 42 U/L (45-117) Potassium Level 3.0 MEQ/L (3.5-5.1) 3.2 MEQ/L (3.5-5.1) Protein Corrected Calcium 7.8 MG/DL (8.5-10.1) Neutrophils (%) (Auto) 71.4 % (16.0-70.0) Lymphocytes # (Auto) 0.9 TH/MM3 (1.0-4.8) Imaging Last Impressions Humerus X-Ray 09/16/17 0000 Signed Impressions: Service Date/Time: Saturday, September 16, 2017 09:34 - CONCLUSION: ORIF proximal humerus anatomic alignment. Ricco Steele MD FACR Chest X-Ray 09/14/17 0850 Signed Impressions: Service Date/Time: Thursday, September 14, 2017 08:59 - CONCLUSION: 1. No acute cardiopulmonary disease. 2. Comminuted left humeral neck fracture. Azar Hull MD Shoulder X-Ray 09/14/17 0658 Signed Impressions: Service Date/Time: Thursday, September 14, 2017 07:13 - CONCLUSION: 1. Comminuted left humeral neck fracture, as above. Azar Hull MD Upper Extremity CT 09/14/17 0000 Signed Impressions: Service Date/Time: Thursday, September 14, 2017 10:19 - CONCLUSION: 1. Comminuted left humeral neck fracture, as above. Azar Hull MD PE at Discharge GENERAL: in NAD CARDIOVASCULAR: Regular rate and rhythm without murmurs, gallops, or rubs. RESPIRATORY: Breath sounds equal bilaterally. No accessory muscle use. GASTROINTESTINAL: Abdomen soft, non-tender, nondistended. MUSCULOSKELETAL: Left arm in bandages. hand in sling. Sensation and radial pulse intact. BACK: Nontender without obvious deformity. No CVA tenderness. Pt update on day of discharge f/u for arm surgery patient has no complaints. he is ambulating in the hallway and doing everything for herself. she stated her sister is coming home tonight and will be able to help with anything that is needed. pain controlled. she has no complaints. discussed case with case management. Hospital Course 58 year old female admitted secondary to left shoulder fracture with dislocation Left humerus fracture Left shoulder dislocation -Secondary to mechanical fall. -s/p Open reduction internal fixation left proximal humerus on 09/16. -after surgery ortho recommended NWB, sling at all times, pendulums 1-2x/day, daily dressing changes POD 2 Anxiety Depression -Continue Trazodone -PRN Xanax Hyperlipidemia -Diet Controlled -Follow as an outpatient Pt Condition on Discharge: Good Discharge Disposition: Discharge Home Discharge Time: > 30 minutes Discharge Instructions DIET: Follow Instructions for: Heart Healthy Diet Activities you can perform: See Additionl Instruction Other Activity Instructions: Nonweightbearing of the arm sling at all times pendulums 1-2x/day Follow up Referrals: Orthopedics - 2 Weeks @ [facility] with David Kidd MD PCP Follow-up - 1 Week New Medications: Calcium Carbonate-Vitamin D (Calcium 600+D 200) 600-200 Mg-Unit Tab 1 TAB PO BID for Nutritional Supplement, #90 TAB 0 Refills Ergocalciferol (Ergocalciferol) 50,000 Unit Cap 46715 UNITS PO Q7D for Nutritional Supplement, #8 CAP Hydrocodone-Acetaminophen (Hydrocodone-Acetaminophen) 10-325 mg Tab 1 TAB PO Q4H PRN for PAIN, #60 TAB 0 Refills Sennosides-Docusate Sodium (Senna Plus 8.6-50 mg) 8.6 Mg-50 Mg Tab 1 TAB PO BID for constipation, #20 TAB 0 Refills Continued Medications: Sertraline (Zoloft) 100 Mg Tab 100 MG PO DAILY, #90 TAB 3 Refills Trazodone (Trazodone) 150 Mg Tablet 2 TAB PO HS, #60 TAB 0 Refills Lacey Pandya MD Sep 17, 2017 11:56
[2017-09-17 12:00] VITALS: BP 114/62; PULSE 63; RESP 18; TEMP 98.1; O2SAT 97
--- NOTE | 2017-09-17 12:47 | HHI.FF ---
Face to Face Verification Diagnosis: (1) Fracture dislocation of left shoulder joint Home Health Nursing Order: Wound care and dressing changes Instructions: daily wound dressing changes on POD#2 with xeroform and primapore. Computer Systems Information Director Order: To Evaluate: Support services Order: To Provide: Long range planning, Community services I have seen patient Genoveva Vann on 09/17/17. My clinical findings support the need for the requested home health care services because: Limited ability to care for self I certify that my clinical findings support that this patient is homebound because: Post-op weakness Lacey Pandya MD Sep 17, 2017 12:47
[2017-09-17 17:21] VITALS: O2SAT 97
== END 2017-09-17 18:10 | disposition home health service (06) | DRG 494 ==
LOC: PHED 06:50 → PHEDA 10:33 → N06B 13:52
PROVIDERS: ADMIT Family Medicine; ATTEND Family Medicine
PROC: 0PSD04Z Reposition Left Humeral Head with Internal Fixation Device, Open Approach (ICD-10-PCS; principal; 2017-09-16 08:17)
DX: S42.212A Unspecified displaced fracture of surgical neck of left humerus, initial encounter for closed fracture (principal); F32.9 Major depressive disorder, single episode, unspecified; M19.90 Unspecified osteoarthritis, unspecified site; S43.005A Unspecified dislocation of left shoulder joint, initial encounter; W01.0XXA Fall on same level from slipping, tripping and stumbling without subsequent striking against object, initial encounter; Y93.9 Activity, unspecified; Y92.9 Unspecified place or not applicable; F41.9 Anxiety disorder, unspecified; F17.210 Nicotine dependence, cigarettes, uncomplicated; S40.022A Contusion of left upper arm, initial encounter; E78.00 Pure hypercholesterolemia, unspecified; Y90.6 Blood alcohol level of 120-199 mg/100 ml; M54.9 Dorsalgia, unspecified; M54.30 Sciatica, unspecified side; G89.29 Other chronic pain
CPT/HCPCS: 23665; 71010; 73030; 73060; 73200; 76000; 80048; 80053; 80307; 85025; 85610; 85730; 93005; 96361; 96374; 96375; 99152; J1170; J0131; J0690; J1580; J1885; J2270; J2405; J3370; J7030; J7050